=== PATIENT | female | born 1950 | race Caucasian/White ===

== ENCOUNTER 2022-01-25 18:56 | Emergency (ER) | payer MEDICARE, OTHER, SELFPAY ==
[2022-01-25] VITALS (9 sets, daily range): BP systolic 129–154; BP diastolic 63–74; PULSE 63–78; RESP 18–22; TEMP 37.1; O2SAT 97–100; BMI 22.1
--- NOTE | 2022-01-25 19:18 | DI.RAD.S_ITS ---
PROCEDURE: XR CHEST 2V INDICATIONS: Shortness of breath TECHNIQUE: 2 views of the chest were acquired. COMPARISON: None. FINDINGS: Surgical changes and devices: Left chest wall 2 lead cardiac pacing device. Median sternotomy changes. Lungs and pleura: Lungs are clear. No pleural effusions or pneumothorax. Mediastinum: Mediastinal contours are normal. Heart size is normal. Bones and chest wall: No suspicious bony abnormalities. Soft tissues appear unremarkable. IMPRESSION: No acute cardiopulmonary process demonstrated radiographically. Dictated by: Jos Villarreal M.D. on 01/25/2022 at 20:11 Approved by: Jos Villarreal M.D. on 01/25/2022 at 20:12
[2022-01-25 19:39] LABS: COVID19 -Nasal RAPID Negative (Negative)
--- NOTE | 2022-01-25 19:46 | ED.SOB ---
HPI - SOB/Dyspnea <DO Drake Robin Last Filed: 01/27/22 05:29> General Chief Complaint: Shortness of Breath/Dyspnea Stated Complaint: can't breathe, pain Time Seen by Provider: 01/25/22 19:44 History of Present Illness HPI Narrative: 71-year-old female nonsmoker with history of Brugada syndrome presents with family in the chief complaint of chest pain and shortness of breath for the past few days. A few weeks ago she had a right shoulder surgery and as part of the surgical process she had bilateral femoral lines in the event that she needed ECMO and subsequently developed pain and bleeding in her right groin which was repaired a few days ago, all this happened back in [place] where she lives and she just flew here in the past day or 2. She is not dizzy nor weak or lightheaded. She has retrosternal chest pain that is worse with deep breath and prevents her from taking a deep breath and is noticeably worse upon lying flat. She denies fever chills nor runny nose, sore throat or cough. She denies abdominal pain, nausea, vomiting or diarrhea. She does have ongoing pain in her right groin and also lower R back. She denies any dysuria, frequency or urgency. Related Data Home Medications Medication Instructions Recorded Confirmed Baby Aspirin 81 mg DAILY 01/25/22 01/25/22 clonazepam 0.5 mg tablet 0.5 mg PO BID 01/25/22 01/25/22 lamotrigine 150 mg tablet 150 mg DAILY 01/25/22 01/25/22 levothyroxine 50 mcg tablet 50 mcg DAILY 01/25/22 01/25/22 quinidine gluconate 324 mg 324 mg PO BID 01/25/22 01/25/22 tablet,extended release rosuvastatin 10 mg tablet 10 mg BEDTIME 01/25/22 01/25/22 topiramate 100 mg tablet 100 mg PO DAILY 01/25/22 01/25/22 Allergies Allergy/AdvReac Type Severity Reaction Status Date / Time amiodarone Allergy Verified 01/26/22 13:59 lidocaine Allergy Verified 01/26/22 13:59 Review of Systems <DO Drake Robin Last Filed: 01/27/22 05:29> Review of Systems Narrative: GENERAL: Denies chills, fatigue, malaise, fever, sweats. HEENT: Denies sinus pain, ear pain, sore throat, difficulty swallowing, dizziness. RESPIRATORY: See HPI CARDIOVASCULAR: See HPI GASTROINTESTINAL: Denies nausea, vomiting, abdominal pain, diarrhea, constipation, melena. : Denies dysuria, frequency, incontinence, hematuria, urinary retention. MUSCULOSKELETAL: denies weakness, joint pain, or bony pain SKIN: Denies rash, skin lesions, or other NEUROLOGIC: Denies weakness, headache, numbness, change in speech, confusion, seizures, incoordination. PSYCHIATRIC: No concerning psychosocial issues. 12 point review of systems is negative except for those stated above Patient History <Tan Andrade DO - Last Filed: 01/27/22 05:29> Social History Smoking Status: Never smoker Smoking Status: Never smoker Substance Use Type: does not use Exam <Tan Andrade DO - Last Filed: 01/27/22 05:29> Narrative Exam Narrative: GENERAL: 71] year old patient appears stated age. Well-developed patient, in mild distress. HEAD: Atraumatic. Normocephalic. EYES: Pupils equal round and reactive. Extraocular motions intact. No scleral icterus. No injection or drainage. ENT: Nose without bleeding, purulent drainage. Throat without erythema, tonsillar hypertrophy or exudate. Airway patent. NECK: Trachea midline. Non tender CARDIOVASCULAR: Regular rate and rhythm without murmurs, gallops, or rubs. RESPIRATORY: Clear to auscultation. Breath sounds equal bilaterally. No wheezes, rales, or rhonchi. GASTROINTESTINAL: Abdomen soft, non-tender, nondistended. No ecchymosis or swelling noted in R groin EXTREMITIES: No edema or joint tenderness. BACK: Nontender without deformity or crepitance. No flank tenderness. NEURO: AOx3. SKIN: No rash or erythema of visible areas Initial Vital Signs Initial Vital Signs: Vital Signs Temperature 98.7 F 01/25/22 19:10 Pulse Rate 72 01/25/22 19:10 Respiratory Rate 22 01/25/22 19:10 Blood Pressure 151/74 H 01/25/22 19:10 Pulse Oximetry 99 01/25/22 19:10 Oxygen Delivery Method 01/25/22 19:10 <Kelley Ward DO - Last Filed: 02/01/22 21:35> Initial Vital Signs Initial Vital Signs: Vital Signs Temperature 98.7 F 01/25/22 19:10 Pulse Rate 72 01/25/22 19:10 Respiratory Rate 22 01/25/22 19:10 Blood Pressure 151/74 H 01/25/22 19:10 Pulse Oximetry 99 01/25/22 19:10 Oxygen Delivery Method 01/25/22 19:10 Course <Tan Andrade DO - Last Filed: 01/27/22 05:29> Orders Ordered: Discontinued Medications Heparin Sodium (Porcine) (Heparin 5,000 Unit/Ml Vial) 4,240 unit IV NOW ONE Stop: 01/25/22 22:45 Last Admin: 01/25/22 23:37 Dose: 4,240 unit Documented By: NAHID Heparin Sodium/Dextrose (Heparin Drip) 25,000 unit in 500 mls @ 24 mls/hr IV CONT TERESA; Protocol Last Titration: 01/26/22 18:15 Dose: 0 units/hr, 0 mls/hr Documented By: Titration: 01/26/22 09:39 Dose: 900 units/hr, 18 mls/hr Documented By: Titration: 01/26/22 08:29 Dose: 0 units/hr, 0 mls/hr Documented By: Admin: 01/25/22 23:40 Dose: 1,200 units/hr, 24 mls/hr Documented By: NAHID Consultations Consultation #1: discussed with patient vascular provider (Sofie at [facility]), records sent Consultation #2: [id number] - call to [facility]. No beds. Facesheet sent. 0218 - [facility] called. Vascular paged. Dr. Douglas consulted, but she recommends against need for vascular admit and requests discussion with medicine. Not a specific need. Vital Signs Vital signs: Vital Signs - 8 hr 01/26/22 09:43 01/26/22 09:43 01/26/22 10:00 Pulse Rate 62 Respiratory Rate 26 H Blood Pressure 144/67 H 148/72 H Pulse Oximetry 99 01/26/22 10:00 01/26/22 10:30 01/26/22 11:00 Pulse Rate 57 L 57 L Respiratory Rate 19 17 Blood Pressure 123/67 Pulse Oximetry 98 97 01/26/22 11:00 01/26/22 11:30 01/26/22 12:04 Pulse Rate 56 L 64 71 Respiratory Rate 17 Blood Pressure Pulse Oximetry 96 98 01/26/22 12:30 01/26/22 13:00 01/26/22 13:30 Pulse Rate 62 Respiratory Rate 36 H Blood Pressure Pulse Oximetry 100 99 99 01/26/22 14:00 01/26/22 14:30 01/26/22 15:00 Pulse Rate 55 L 63 65 Respiratory Rate 22 19 19 Blood Pressure Pulse Oximetry 97 99 01/26/22 15:30 01/26/22 16:00 01/26/22 16:30 Pulse Rate 65 65 63 Respiratory Rate Blood Pressure Pulse Oximetry 99 100 98 <Kelley Ward, - Last Filed: 02/01/22 21:35> Orders Ordered: Discontinued Medications Heparin Sodium (Porcine) (Heparin 5,000 Unit/Ml Vial) 4,240 unit IV NOW ONE Stop: 01/25/22 22:45 Last Admin: 01/25/22 23:37 Dose: 4,240 unit Documented By: NAHID Heparin Sodium/Dextrose (Heparin Drip) 25,000 unit in 500 mls @ 24 mls/hr IV CONT TERESA; Protocol Last Titration: 01/26/22 18:15 Dose: 0 units/hr, 0 mls/hr Documented By: Titration: 01/26/22 09:39 Dose: 900 units/hr, 18 mls/hr Documented By: Titration: 01/26/22 08:29 Dose: 0 units/hr, 0 mls/hr Documented By: Admin: 01/25/22 23:40 Dose: 1,200 units/hr, 24 mls/hr Documented By: NAHID Consultations Consultation #3: Spoke with Dr. Sal at [facility]. After reviewing patient's history, he spoke with vascular and they also reviewed images with vascular surgery and Radiology and feel patient is appropriate for transfer he asked for repeat hemoglobin, plan to continue heparin drip monitor and transfer at this time. Patient has been bradycardic but not had any significant hypotensive episodes we discussed she is not been hypoxic. She has not had any acute chest pain or pressure. He asked that reports from all images be sent as well. Time: 15:30 Vital Signs Vital signs: Vital Signs - 8 hr 01/26/22 09:43 01/26/22 09:43 01/26/22 10:00 Pulse Rate 62 Respiratory Rate 26 H Blood Pressure 144/67 H 148/72 H Pulse Oximetry 99 01/26/22 10:00 01/26/22 10:30 01/26/22 11:00 Pulse Rate 57 L 57 L Respiratory Rate 19 17 Blood Pressure 123/67 Pulse Oximetry 98 97 01/26/22 11:00 01/26/22 11:30 01/26/22 12:04 Pulse Rate 56 L 64 71 Respiratory Rate 17 Blood Pressure Pulse Oximetry 96 98 01/26/22 12:30 01/26/22 13:00 01/26/22 13:30 Pulse Rate 62 Respiratory Rate 36 H Blood Pressure Pulse Oximetry 100 99 99 01/26/22 14:00 01/26/22 14:30 01/26/22 15:00 Pulse Rate 55 L 63 65 Respiratory Rate 22 19 19 Blood Pressure Pulse Oximetry 97 99 01/26/22 15:30 01/26/22 16:00 01/26/22 16:30 Pulse Rate 65 65 63 Respiratory Rate Blood Pressure Pulse Oximetry 99 100 98 MDM - SOB/Dyspnea <Tan Andrade, DO - Last Filed: 01/27/22 05:29> Lab Data Result diagrams: 01/26/22 15:26 01/26/22 11:38 Labs: Lab Results 01/25/22 01/25/22 01/25/22 Range/Units 19:07 19:40 19:40 WBC 10.1 (4.5-11.0) X10^3/uL RBC 3.35 L (4.0-5.2) X10^6/uL Hgb 10.3 L (12.0-16.0) g/dL Hct 30.5 L (36-46) % MCV 91.1 (80-100) fL MCH 30.8 (26-34) PG MCHC 33.8 (30-36) % RDW 14.6 (11.6-14.8) % Plt Count 324 (150-400) X10^3/uL Neut % (Auto) 77.5 H (50-75) % Lymph % (Auto) 11.5 L (25-40) % [place] % (Auto) 9.3 (3-14) % Eos % (Auto) 0.9 L (2-4) % Baso % (Auto) 0.8 (0-2) % Neut # (Auto) 7800 H (0096-2482) /uL Lymph # (Auto) 1200 (5214-9387) /uL [place] # (Auto) 900 (0-900) /uL Eos # (Auto) 100 (0-450) /uL Baso # (Auto) 100 (0-100) /uL APTT (26.4-36.2) SECONDS D-Dimer (<230) ng/mL Sodium 138 (137-145) mmol/L Potassium 3.2 L (3.4-5.1) mmol/L Chloride 106 (98-107) mmol/L Carbon Dioxide 22 (22-32) mmol/L BUN 14 (7-17) mg/dL Creatinine 0.72 (0.52-1.04) mg/dL Estimated GFR > 60 (>60) mL/min BUN/Creatinine Ratio 19.4 (6-22) Glucose 102 (80-110) mg/dL Lactate (0.7-2.1) mmol/L Calcium 8.6 (8.4-10.2) mg/dL Total Bilirubin 0.7 (0.2-1.3) mg/dL AST 28 (14-36) IU/L ALT 18 (<35) IU/L Alkaline Phosphatase 96 (38-126) U/L Total Creatine Kinase (30-135) U/L CK-MB (CK-2) CK-MB (CK-2) Rel Index Troponin I (0.01-0.034) ng/mL Total Protein 6.8 (6.3-8.2) g/dL Albumin 4.0 (3.5-5.0) g/dL Globulin 2.8 (1.7-4.1) g/dL Albumin/Globulin Ratio 1.4 (1.0-2.8) SARS-CoV-2 (PCR) Negative (Negative) 01/25/22 01/25/22 01/25/22 Range/Units 19:40 19:40 19:40 WBC (4.5-11.0) X10^3/uL RBC (4.0-5.2) X10^6/uL Hgb (12.0-16.0) g/dL Hct (36-46) % MCV (80-100) fL MCH (26-34) PG MCHC (30-36) % RDW (11.6-14.8) % Plt Count (150-400) X10^3/uL Neut % (Auto) (50-75) % Lymph % (Auto) (25-40) % [place] % (Auto) (3-14) % Eos % (Auto) (2-4) % Baso % (Auto) (0-2) % Neut # (Auto) (7546-8601) /uL Lymph # (Auto) (0297-9501) /uL [place] # (Auto) (0-900) /uL Eos # (Auto) (0-450) /uL Baso # (Auto) (0-100) /uL APTT 71 H (26.4-36.2) SECONDS D-Dimer 842 H (<230) ng/mL Sodium (137-145) mmol/L Potassium (3.4-5.1) mmol/L Chloride (98-107) mmol/L Carbon Dioxide (22-32) mmol/L BUN (7-17) mg/dL Creatinine (0.52-1.04) mg/dL Estimated GFR (>60) mL/min BUN/Creatinine Ratio (6-22) Glucose (80-110) mg/dL Lactate 0.6 L (0.7-2.1) mmol/L Calcium (8.4-10.2) mg/dL Total Bilirubin (0.2-1.3) mg/dL AST (14-36) IU/L ALT (<35) IU/L Alkaline Phosphatase (38-126) U/L Total Creatine Kinase (30-135) U/L CK-MB (CK-2) CK-MB (CK-2) Rel Index Troponin I (0.01-0.034) ng/mL Total Protein (6.3-8.2) g/dL Albumin (3.5-5.0) g/dL Globulin (1.7-4.1) g/dL Albumin/Globulin Ratio (1.0-2.8) SARS-CoV-2 (PCR) (Negative) 01/26/22 01/26/22 01/26/22 Range/Units 01:36 07:31 07:31 WBC (4.5-11.0) X10^3/uL RBC (4.0-5.2) X10^6/uL Hgb 9.2 L 10.8 L (12.0-16.0) g/dL Hct 27.4 L 31.4 L (36-46) % MCV (80-100) fL MCH (26-34) PG MCHC (30-36) % RDW (11.6-14.8) % Plt Count (150-400) X10^3/uL Neut % (Auto) (50-75) % Lymph % (Auto) (25-40) % [place] % (Auto) (3-14) % Eos % (Auto) (2-4) % Baso % (Auto) (0-2) % Neut # (Auto) (0018-1540) /uL Lymph # (Auto) (1399-2413) /uL [place] # (Auto) (0-900) /uL Eos # (Auto) (0-450) /uL Baso # (Auto) (0-100) /uL APTT 275 H* D (26.4-36.2) SECONDS D-Dimer (<230) ng/mL Sodium (137-145) mmol/L Potassium (3.4-5.1) mmol/L Chloride (98-107) mmol/L Carbon Dioxide (22-32) mmol/L BUN (7-17) mg/dL Creatinine (0.52-1.04) mg/dL Estimated GFR (>60) mL/min BUN/Creatinine Ratio (6-22) Glucose (80-110) mg/dL Lactate (0.7-2.1) mmol/L Calcium (8.4-10.2) mg/dL Total Bilirubin (0.2-1.3) mg/dL AST (14-36) IU/L ALT (<35) IU/L Alkaline Phosphatase (38-126) U/L Total Creatine Kinase (30-135) U/L CK-MB (CK-2) CK-MB (CK-2) Rel Index Troponin I (0.01-0.034) ng/mL Total Protein (6.3-8.2) g/dL Albumin (3.5-5.0) g/dL Globulin (1.7-4.1) g/dL Albumin/Globulin Ratio (1.0-2.8) SARS-CoV-2 (PCR) (Negative) 01/26/22 01/26/22 01/26/22 Range/Units 09:12 11:38 11:38 WBC (4.5-11.0) X10^3/uL RBC (4.0-5.2) X10^6/uL Hgb (12.0-16.0) g/dL Hct (36-46) % MCV (80-100) fL MCH (26-34) PG MCHC (30-36) % RDW (11.6-14.8) % Plt Count (150-400) X10^3/uL Neut % (Auto) (50-75) % Lymph % (Auto) (25-40) % [place] % (Auto) (3-14) % Eos % (Auto) (2-4) % Baso % (Auto) (0-2) % Neut # (Auto) (8057-2568) /uL Lymph # (Auto) (8913-1087) /uL [place] # (Auto) (0-900) /uL Eos # (Auto) (0-450) /uL Baso # (Auto) (0-100) /uL APTT 63 H D (26.4-36.2) SECONDS D-Dimer (<230) ng/mL Sodium 137 (137-145) mmol/L Potassium 3.3 L (3.4-5.1) mmol/L Chloride 105 (98-107) mmol/L Carbon Dioxide 23 (22-32) mmol/L BUN 12 (7-17) mg/dL Creatinine 0.60 (0.52-1.04) mg/dL Estimated GFR > 60 (>60) mL/min BUN/Creatinine Ratio 20.0 (6-22) Glucose 91 (80-110) mg/dL Lactate (0.7-2.1) mmol/L Calcium 8.2 L (8.4-10.2) mg/dL Total Bilirubin (0.2-1.3) mg/dL AST (14-36) IU/L ALT (<35) IU/L Alkaline Phosphatase (38-126) U/L Total Creatine Kinase 36 (30-135) U/L CK-MB (CK-2) TNP CK-MB (CK-2) Rel Index TNP Troponin I < 0.012 (0.01-0.034) ng/mL Total Protein (6.3-8.2) g/dL Albumin (3.5-5.0) g/dL Globulin (1.7-4.1) g/dL Albumin/Globulin Ratio (1.0-2.8) SARS-CoV-2 (PCR) (Negative) 01/26/22 Range/Units 15:26 WBC (4.5-11.0) X10^3/uL RBC (4.0-5.2) X10^6/uL Hgb 10.8 L (12.0-16.0) g/dL Hct 31.5 L (36-46) % MCV (80-100) fL MCH (26-34) PG MCHC (30-36) % RDW (11.6-14.8) % Plt Count (150-400) X10^3/uL Neut % (Auto) (50-75) % Lymph % (Auto) (25-40) % [place] % (Auto) (3-14) % Eos % (Auto) (2-4) % Baso % (Auto) (0-2) % Neut # (Auto) (0392-0263) /uL Lymph # (Auto) (9853-7403) /uL [place] # (Auto) (0-900) /uL Eos # (Auto) (0-450) /uL Baso # (Auto) (0-100) /uL APTT (26.4-36.2) SECONDS D-Dimer (<230) ng/mL Sodium (137-145) mmol/L Potassium (3.4-5.1) mmol/L Chloride (98-107) mmol/L Carbon Dioxide (22-32) mmol/L BUN (7-17) mg/dL Creatinine (0.52-1.04) mg/dL Estimated GFR (>60) mL/min BUN/Creatinine Ratio (6-22) Glucose (80-110) mg/dL Lactate (0.7-2.1) mmol/L Calcium (8.4-10.2) mg/dL Total Bilirubin (0.2-1.3) mg/dL AST (14-36) IU/L ALT (<35) IU/L Alkaline Phosphatase (38-126) U/L Total Creatine Kinase (30-135) U/L CK-MB (CK-2) CK-MB (CK-2) Rel Index Troponin I (0.01-0.034) ng/mL Total Protein (6.3-8.2) g/dL Albumin (3.5-5.0) g/dL Globulin (1.7-4.1) g/dL Albumin/Globulin Ratio (1.0-2.8) SARS-CoV-2 (PCR) (Negative) <Kelley Katie Ed, DO - Last Filed: 02/01/22 21:35> Lab Data Labs: Lab Results 01/25/22 01/25/22 01/25/22 Range/Units 19:07 19:40 19:40 WBC 10.1 (4.5-11.0) X10^3/uL RBC 3.35 L (4.0-5.2) X10^6/uL Hgb 10.3 L (12.0-16.0) g/dL Hct 30.5 L (36-46) % MCV 91.1 (80-100) fL MCH 30.8 (26-34) PG MCHC 33.8 (30-36) % RDW 14.6 (11.6-14.8) % Plt Count 324 (150-400) X10^3/uL Neut % (Auto) 77.5 H (50-75) % Lymph % (Auto) 11.5 L (25-40) % [place] % (Auto) 9.3 (3-14) % Eos % (Auto) 0.9 L (2-4) % Baso % (Auto) 0.8 (0-2) % Neut # (Auto) 7800 H (0249-9229) /uL Lymph # (Auto) 1200 (2318-6998) /uL [place] # (Auto) 900 (0-900) /uL Eos # (Auto) 100 (0-450) /uL Baso # (Auto) 100 (0-100) /uL APTT (26.4-36.2) SECONDS D-Dimer (<230) ng/mL Sodium 138 (137-145) mmol/L Potassium 3.2 L (3.4-5.1) mmol/L Chloride 106 (98-107) mmol/L Carbon Dioxide 22 (22-32) mmol/L BUN 14 (7-17) mg/dL Creatinine 0.72 (0.52-1.04) mg/dL Estimated GFR > 60 (>60) mL/min BUN/Creatinine Ratio 19.4 (6-22) Glucose 102 (80-110) mg/dL Lactate (0.7-2.1) mmol/L Calcium 8.6 (8.4-10.2) mg/dL Total Bilirubin 0.7 (0.2-1.3) mg/dL AST 28 (14-36) IU/L ALT 18 (<35) IU/L Alkaline Phosphatase 96 (38-126) U/L Total Creatine Kinase (30-135) U/L CK-MB (CK-2) CK-MB (CK-2) Rel Index Troponin I (0.01-0.034) ng/mL Total Protein 6.8 (6.3-8.2) g/dL Albumin 4.0 (3.5-5.0) g/dL Globulin 2.8 (1.7-4.1) g/dL Albumin/Globulin Ratio 1.4 (1.0-2.8) SARS-CoV-2 (PCR) Negative (Negative) 01/25/22 01/25/22 01/25/22 Range/Units 19:40 19:40 19:40 WBC (4.5-11.0) X10^3/uL RBC (4.0-5.2) X10^6/uL Hgb (12.0-16.0) g/dL Hct (36-46) % MCV (80-100) fL MCH (26-34) PG MCHC (30-36) % RDW (11.6-14.8) % Plt Count (150-400) X10^3/uL Neut % (Auto) (50-75) % Lymph % (Auto) (25-40) % [place] % (Auto) (3-14) % Eos % (Auto) (2-4) % Baso % (Auto) (0-2) % Neut # (Auto) (5531-7597) /uL Lymph # (Auto) (5983-3407) /uL [place] # (Auto) (0-900) /uL Eos # (Auto) (0-450) /uL Baso # (Auto) (0-100) /uL APTT 71 H (26.4-36.2) SECONDS D-Dimer 842 H (<230) ng/mL Sodium (137-145) mmol/L Potassium (3.4-5.1) mmol/L Chloride (98-107) mmol/L Carbon Dioxide (22-32) mmol/L BUN (7-17) mg/dL Creatinine (0.52-1.04) mg/dL Estimated GFR (>60) mL/min BUN/Creatinine Ratio (6-22) Glucose (80-110) mg/dL Lactate 0.6 L (0.7-2.1) mmol/L Calcium (8.4-10.2) mg/dL Total Bilirubin (0.2-1.3) mg/dL AST (14-36) IU/L ALT (<35) IU/L Alkaline Phosphatase (38-126) U/L Total Creatine Kinase (30-135) U/L CK-MB (CK-2) CK-MB (CK-2) Rel Index Troponin I (0.01-0.034) ng/mL Total Protein (6.3-8.2) g/dL Albumin (3.5-5.0) g/dL Globulin (1.7-4.1) g/dL Albumin/Globulin Ratio (1.0-2.8) SARS-CoV-2 (PCR) (Negative) 01/26/22 01/26/22 01/26/22 Range/Units 01:36 07:31 07:31 WBC (4.5-11.0) X10^3/uL RBC (4.0-5.2) X10^6/uL Hgb 9.2 L 10.8 L (12.0-16.0) g/dL Hct 27.4 L 31.4 L (36-46) % MCV (80-100) fL MCH (26-34) PG MCHC (30-36) % RDW (11.6-14.8) % Plt Count (150-400) X10^3/uL Neut % (Auto) (50-75) % Lymph % (Auto) (25-40) % [place] % (Auto) (3-14) % Eos % (Auto) (2-4) % Baso % (Auto) (0-2) % Neut # (Auto) (6324-0697) /uL Lymph # (Auto) (6989-8911) /uL [place] # (Auto) (0-900) /uL Eos # (Auto) (0-450) /uL Baso # (Auto) (0-100) /uL APTT 275 H* D (26.4-36.2) SECONDS D-Dimer (<230) ng/mL Sodium (137-145) mmol/L Potassium (3.4-5.1) mmol/L Chloride (98-107) mmol/L Carbon Dioxide (22-32) mmol/L BUN (7-17) mg/dL Creatinine (0.52-1.04) mg/dL Estimated GFR (>60) mL/min BUN/Creatinine Ratio (6-22) Glucose (80-110) mg/dL Lactate (0.7-2.1) mmol/L Calcium (8.4-10.2) mg/dL Total Bilirubin (0.2-1.3) mg/dL AST (14-36) IU/L ALT (<35) IU/L Alkaline Phosphatase (38-126) U/L Total Creatine Kinase (30-135) U/L CK-MB (CK-2) CK-MB (CK-2) Rel Index Troponin I (0.01-0.034) ng/mL Total Protein (6.3-8.2) g/dL Albumin (3.5-5.0) g/dL Globulin (1.7-4.1) g/dL Albumin/Globulin Ratio (1.0-2.8) SARS-CoV-2 (PCR) (Negative) 01/26/22 01/26/22 01/26/22 Range/Units 09:12 11:38 11:38 WBC (4.5-11.0) X10^3/uL RBC (4.0-5.2) X10^6/uL Hgb (12.0-16.0) g/dL Hct (36-46) % MCV (80-100) fL MCH (26-34) PG MCHC (30-36) % RDW (11.6-14.8) % Plt Count (150-400) X10^3/uL Neut % (Auto) (50-75) % Lymph % (Auto) (25-40) % [place] % (Auto) (3-14) % Eos % (Auto) (2-4) % Baso % (Auto) (0-2) % Neut # (Auto) (3636-1842) /uL Lymph # (Auto) (9845-8894) /uL [place] # (Auto) (0-900) /uL Eos # (Auto) (0-450) /uL Baso # (Auto) (0-100) /uL APTT 63 H D (26.4-36.2) SECONDS D-Dimer (<230) ng/mL Sodium 137 (137-145) mmol/L Potassium 3.3 L (3.4-5.1) mmol/L Chloride 105 (98-107) mmol/L Carbon Dioxide 23 (22-32) mmol/L BUN 12 (7-17) mg/dL Creatinine 0.60 (0.52-1.04) mg/dL Estimated GFR > 60 (>60) mL/min BUN/Creatinine Ratio 20.0 (6-22) Glucose 91 (80-110) mg/dL Lactate (0.7-2.1) mmol/L Calcium 8.2 L (8.4-10.2) mg/dL Total Bilirubin (0.2-1.3) mg/dL AST (14-36) IU/L ALT (<35) IU/L Alkaline Phosphatase (38-126) U/L Total Creatine Kinase 36 (30-135) U/L CK-MB (CK-2) TNP CK-MB (CK-2) Rel Index TNP Troponin I < 0.012 (0.01-0.034) ng/mL Total Protein (6.3-8.2) g/dL Albumin (3.5-5.0) g/dL Globulin (1.7-4.1) g/dL Albumin/Globulin Ratio (1.0-2.8) SARS-CoV-2 (PCR) (Negative) 01/26/22 Range/Units 15:26 WBC (4.5-11.0) X10^3/uL RBC (4.0-5.2) X10^6/uL Hgb 10.8 L (12.0-16.0) g/dL Hct 31.5 L (36-46) % MCV (80-100) fL MCH (26-34) PG MCHC (30-36) % RDW (11.6-14.8) % Plt Count (150-400) X10^3/uL Neut % (Auto) (50-75) % Lymph % (Auto) (25-40) % [place] % (Auto) (3-14) % Eos % (Auto) (2-4) % Baso % (Auto) (0-2) % Neut # (Auto) (9030-4359) /uL Lymph # (Auto) (2110-5275) /uL [place] # (Auto) (0-900) /uL Eos # (Auto) (0-450) /uL Baso # (Auto) (0-100) /uL APTT (26.4-36.2) SECONDS D-Dimer (<230) ng/mL Sodium (137-145) mmol/L Potassium (3.4-5.1) mmol/L Chloride (98-107) mmol/L Carbon Dioxide (22-32) mmol/L BUN (7-17) mg/dL Creatinine (0.52-1.04) mg/dL Estimated GFR (>60) mL/min BUN/Creatinine Ratio (6-22) Glucose (80-110) mg/dL Lactate (0.7-2.1) mmol/L Calcium (8.4-10.2) mg/dL Total Bilirubin (0.2-1.3) mg/dL AST (14-36) IU/L ALT (<35) IU/L Alkaline Phosphatase (38-126) U/L Total Creatine Kinase (30-135) U/L CK-MB (CK-2) CK-MB (CK-2) Rel Index Troponin I (0.01-0.034) ng/mL Total Protein (6.3-8.2) g/dL Albumin (3.5-5.0) g/dL Globulin (1.7-4.1) g/dL Albumin/Globulin Ratio (1.0-2.8) SARS-CoV-2 (PCR) (Negative) Imaging Data CT chest/abd/pelvis: Radiologist's Impression: [address] [address] [address] Scan Report Signed Patient: Daria Benedict MR#: [id number] : 1950 Acct:[id number] Age/Sex: 71 / F Date of Service: 01/25/22 Loc: ED Accession Number: [id number] ?? Procedure: CT angio chest abdomen pelvis Ordering Provider: Tan Andrade D.O. PROCEDURE:? CT ANGIO CHEST ABDOMEN PELVIS ? INDICATIONS:? chest pain, SOB, travel, surgery ? TECHNIQUE:? Precontrast 5 mm thick sections acquired from the lung apices to the iliac crests.? After the administration of intravenous contrast, 2.5 mm thick sections again acquired from the lung apices to the iliac crests.? Maximum intensity projection (MIP) oblique sagittal and coronal reformats were then acquired.? For radiation dose reduction, the following was used:? automated exposure control.? ? COMPARISON:? None. ? FINDINGS:? ? Normal caliber thoracic aorta without acute finding.? Abdominal aorta and major visceral branches of the abdominal aorta demonstrate no acute finding.? Mild atherosclerotic plaque and calcification in the abdominal aorta and iliac arteries. ? Multiple right lower lobe pulmonary artery filling defects consistent with acute pulmonary emboli which are fully occlusive.? ? No acute airspace opacity.? Mild emphysematous changes.? In the basilar right lower lobe there is a small focus of either atelectasis or hemorrhagic consolidation related to the embolism.? No pleural effusion or pneumothorax.? No threshold enlarged thoracic lymph node by CT size criteria. ? No acute finding in the partially visualized upper abdomen.? There are several pancreatic low-density lesions which are thought to represent IP M ends, largest measuring 1.5 cm in the tail. ? There is a hematoma in the right rectus abdominus sheath measuring 5 cm by 1.6 cm maximum axial dimension.? No evidence of active extravasation into this hematoma.? There is fat stranding in the right lower quadrant abdomen and in the right femoral sheath adjacent to the femoral and iliac veins.? There is an additional suspected organized hematoma anterior and to the right of the urinary bladder on series 4, image 253 measuring 6 x 2 cm.? No free fluid or free air.? No acute enteric abnormality. ? Impression: ? Multiple acute fully occlusive right lower lobe pulmonary artery emboli with small focus of atelectasis or hemorrhagic consolidation in the right lower lobe. ? No acute aortic abnormality. ? Hematoma in the right rectus abdominus sheath and 2 retroperitoneal hematomas in the lower right pelvis.? Fat stranding surrounding the hematomas extending into the right femoral sheath.? Correlate with recent procedural/operative history.? No active extravasation into the hematoma is identified. ? 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 Correlate with prior imaging to document stability. ? Dictated by: Jos Villarreal M.D. on 01/25/2022 at 20:55 ? ? Approved by: Jos Villarreal M.D. on 01/25/2022 at 21:01?? Chest x-ray: Radiologist's Impression: [address] [address] XRay Report Signed Patient: Daria Benedict MR#: [id number] : 1950 Acct:[id number] Age/Sex: 71 / F Date of Service: 01/25/22 Loc: ED Accession Number: [id number] ?? Procedure: XR chest 2V Ordering Provider: Tan Andrade D.O. PROCEDURE:? XR CHEST 2V ? INDICATIONS:? Shortness of breath ? TECHNIQUE:? 2 views of the chest were acquired.? ? COMPARISON:? None. ? FINDINGS:? ? Surgical changes and devices:? Left chest wall 2 lead cardiac pacing device.? Median sternotomy changes. ? Lungs and pleura:? Lungs are clear.? No pleural effusions or pneumothorax.? ? Mediastinum:? Mediastinal contours are normal.? Heart size is normal.? ? Bones and chest wall:? No suspicious bony abnormalities.? Soft tissues appear unremarkable.? ? IMPRESSION:? No acute cardiopulmonary process demonstrated radiographically. ? ? Dictated by: Jos Villarreal M.D. on 01/25/2022 at 20:11 ? ? Approved by: Jos Villarreal M.D. on 01/25/2022 at 20:12?? US - DVT: Radiologist's Impression: [address] [id number] ReportSigned Patient: Daria Benedict JMR#: [id number]: [id number]:[id number]/Sex: 71 / FDate of Service: 01/26/22Loc: EDAccession Number: [id number]? ? Procedure: US periph venous low extrem bi Ordering Provider: Kelley Ward D.O. PROCEDURE:? US PERIPH VENOUS LOW EXTREM BI ? INDICATIONS:? PE ? TECHNIQUE:? Real-time imaging, as well as color and pulse Doppler interrogation, were performed of the deep veins of both legs from the inguinal ligament to the popliteal fossa.? ? COMPARISON:? [facility], CT, CT ANGIO CHEST ABDOMEN PELVIS, 01/25/2022, 20:15. ? FINDINGS:? ? Right: The common femoral, femoral and popliteal veins are normally compressible, and free of intraluminal thrombus.? Color and pulse Doppler demonstrate normal phasic intravascular flow.? There is normal augmentation response to distal compression maneuver.? ? Left: The common femoral, femoral and popliteal veins are normally compressible, and free of intraluminal thrombus.? Color and pulse Doppler demonstrate normal phasic intravascular flow.? There is normal augmentation response to distal compression maneuver.? ? ? IMPRESSION:? ? Negative for deep venous thrombosis. ? ? Dictated by: Roger Lovell M.D. on 01/26/2022 at 15:26? ?? Approved by: Roger Lovell M.D. on 01/26/2022 at 15:26?? ECG Data Attestation: I personally reviewed and interpreted this ECG as follows: Interpretation: Sinus bradycardia patient does have changes in V1 V2 with inverted T-wave and depressed at V2 that likely consistent with her Brugada history. No other ST changes are appreciated. No priors for comparison. Rate of 58 OR 194 QRS 86 and QTC of 457. MDM Narrative Medical decision making narrative: 01/26/22 [facility] 0849: Patient received in sign-out from Dr. Andrade. Patient seen independently evaluated by myself. Her chest pain has resolved she still has some right abdominal pain. Patient has a history of Brugada syndrome on quinidine had right shoulder surgery January 11 and had bilateral femoral lines placed in the event for potential ECMO based on her past medical history. They were removed on January 13 she developed pseudoaneurysm was seen in the ER no obvious bleed is reported but I do not have her actual records. Patient was found to have a pseudoaneurysm and saw her vascular surgeon as an outpatient following Saturday and had injection to treat this. This occurred in [place] at [facility] in [place], [place] and then she flew here locally 2 days ago. Her vascular surgeon is Dr. Carrizales in [place]. Patient came in with complaint of retrosternal chest pain and shortness of breath was found to have occlusive PEs but with no signs of heart strain or interventional criteria but was also found to have rectus sheath and retroperitoneal hematomas in the lower right pelvis likely related to her femoral sheaths. Patient's hemoglobin dropped 1 g overnight but is likely lab variant as repeat is same as the initial while on heparin. There was concern for additional bleeding and vascular and Cardiology was consulted, recommend treatment for pulmonary emboli but monitoring to evaluate for any bleeding. Hospitalist here was concerned as if she were to worsen acutely we do not have the appropriate services for this patient. Patient had multiple facilities called but secondary to regional bed shortage has not been accepted. She is on the [facility] hotline, hemoglobin continued to be monitored along with PTT and BMP to be rechecked this morning while searching for a bed. Patient seen multiple times throughout her stay today. She continues to be asymptomatic. Hemoglobin was stable overnight into this morning. Potassium was slightly low BNP was repeated and does not show any major changes. Patient has been bradycardic but not hypotensive or hypoxic episodes. Her chest pain has resolved. Patient continues to be on heparin drip. She took her home medications except for her daily aspirin including her quinidine, levothyroxine, lamotrigine and Topamax. After discussion we were able to find a bed at [facility] and Dr. Sal kindly accepts for admission. Patient stable for transfer. All questions answered. Discharge Plan Departure Patient Disposition: [facility] Clinical Impression: Pulmonary embolism on right, Intra-abdominal hematoma, Brugada syndrome Prescriptions: No Action lamotrigine 150 mg tablet 150 mg DAILY Label Comments: Take 1 tab by mouth every morning and 1/2 tab every evening quinidine gluconate 324 mg tablet extended release 324 mg PO BID Label Comments: TAKE ONE TABLET BY MOUTH EVERY TWELVE HOURS Rx Instructions: takes every 12 hours levothyroxine 50 mcg tablet 50 mcg DAILY Label Comments: Take 1 tablet by mouth daily for hypothyroidism. topiramate 100 mg Tablet 100 mg PO DAILY rosuvastatin 10 mg tablet 10 mg BEDTIME Label Comments: Take 1 tablet by mouth daily for mixed hyperlipidemia. Baby Aspirin 81 mg 81 mg DAILY clonazepam 0.5 mg Tablet 0.5 mg PO BID
[2022-01-25 19:48] LABS: Add Manual Diff / Slide Review NO; Basophils Absolute Auto 100 /uL (0-100); Basophils Percent Auto 0.8 % (0-2); Eosinophils Absolute Auto 100 /uL (0-450); Eosinophils Percent Auto 0.9 % (2-4); Hematocrit 30.5 % (36-46); Hemoglobin 10.3 g/dL (12.0-16.0); Lymphocytes Absolute Auto 1200 /uL (1100-4500); Lymphocytes Percent Auto 11.5 % (25-40); Mean Corpuscular HGB Conc 33.8 % (30-36); Mean Corpuscular Hemoglobin 30.8 PG (26-34); Mean Corpuscular Volume 91.1 fL (80-100); Monocytes Absolute Auto 900 /uL (0-900); Monocytes Percent Auto 9.3 % (3-14); Neutrophils Absolute Auto 7800 /uL (1500-7000); Neutrophils Percent Auto 77.5 % (50-75); Platelet Count 324 X10^3/uL (150-400); Red Blood Cell Count 3.35 X10^6/uL (4.0-5.2); Red Cell Distribution Width 14.6 % (11.6-14.8); White Blood Cell Count 10.1 X10^3/uL (4.5-11.0)
[2022-01-25 19:58] LABS: D Dimer 842 ng/mL (<230)
[2022-01-25 20:00] LABS: Alanine Aminotransferase 18 IU/L (<35); Albumin Globulin Ratio 1.4 (1.0-2.8); Alkaline Phosphatase 96 U/L (38-126); Aspartate Aminotransferase 28 IU/L (14-36); BUN Creatinine Ratio 19.4 (6-22); Bilirubin Total 0.7 mg/dL (0.2-1.3); Blood Urea Nitrogen 14 mg/dL (7-17); Calcium 8.6 mg/dL (8.4-10.2); Carbon Dioxide 22 mmol/L (22-32); Chloride 106 mmol/L (98-107); Estimated Glomerular Filt Rate > 60 mL/min (>60); Globulin 2.8 g/dL (1.7-4.1); Glucose 102 mg/dL (80-110); HEMOLYSIS < 15 (0-50); Potassium 3.2 mmol/L (3.4-5.1); Sodium 138 mmol/L (137-145); Total Protein 6.8 g/dL (6.3-8.2)
[2022-01-25 20:01] LABS: Lactate (Lactic Acid) 0.6 mmol/L (0.7-2.1)
--- NOTE | 2022-01-25 20:09 | DI.CT.S_ITS ---
PROCEDURE: CT ANGIO CHEST ABDOMEN PELVIS INDICATIONS: chest pain, SOB, travel, surgery TECHNIQUE: Precontrast 5 mm thick sections acquired from the lung apices to the iliac crests. After the administration of intravenous contrast, 2.5 mm thick sections again acquired from the lung apices to the iliac crests. Maximum intensity projection (MIP) oblique sagittal and coronal reformats were then acquired. For radiation dose reduction, the following was used: automated exposure control. COMPARISON: None. FINDINGS: Normal caliber thoracic aorta without acute finding. Abdominal aorta and major visceral branches of the abdominal aorta demonstrate no acute finding. Mild atherosclerotic plaque and calcification in the abdominal aorta and iliac arteries. Multiple right lower lobe pulmonary artery filling defects consistent with acute pulmonary emboli which are fully occlusive. No acute airspace opacity. Mild emphysematous changes. In the basilar right lower lobe there is a small focus of either atelectasis or hemorrhagic consolidation related to the embolism. No pleural effusion or pneumothorax. No threshold enlarged thoracic lymph node by CT size criteria. No acute finding in the partially visualized upper abdomen. There are several pancreatic low-density lesions which are thought to represent IP M ends, largest measuring 1.5 cm in the tail. There is a hematoma in the right rectus abdominus sheath measuring 5 cm by 1.6 cm maximum axial dimension. No evidence of active extravasation into this hematoma. There is fat stranding in the right lower quadrant abdomen and in the right femoral sheath adjacent to the femoral and iliac veins. There is an additional suspected organized hematoma anterior and to the right of the urinary bladder on series 4, image 253 measuring 6 x 2 cm. No free fluid or free air. No acute enteric abnormality. Impression: Multiple acute fully occlusive right lower lobe pulmonary artery emboli with small focus of atelectasis or hemorrhagic consolidation in the right lower lobe. No acute aortic abnormality. Hematoma in the right rectus abdominus sheath and 2 retroperitoneal hematomas in the lower right pelvis. Fat stranding surrounding the hematomas extending into the right femoral sheath. Correlate with recent procedural/operative history. No active extravasation into the hematoma is identified. 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 Correlate with prior imaging to document stability. Dictated by: Jos Villarreal M.D. on 01/25/2022 at 20:55 Approved by: Jos Villarreal M.D. on 01/25/2022 at 21:01
--- NOTE | 2022-01-25 20:24 | PC.NURSE ---
Pt with hx of surgery on 01/11 and repair of leaky femeral artery 01/22, reports having bilateral lung pain with breathing on 01/23. Traveled today by plane fron [place]. Feels that she can not breathe, o2 99 % RA at this time. Pain increases when at night.
[2022-01-25] MEDS: HEPARIN 5,000 UNIT/ML VIAL 4240 UNIT IV (23:37)
[2022-01-25] MEDS: HEPARIN DRIP 25,000 UNIT/500 ML IV.SOLN 24 UNIT IV (23:40)
[2022-01-25 23:59] LABS: PTT Partial Thromboplastin Tim 71 SECONDS (26.4-36.2)
[2022-01-26] VITALS (38 sets, daily range): BP systolic 123–148; BP diastolic 65–72; PULSE 55–73; RESP 16–39; O2SAT 96–100
[2022-01-26 01:47] LABS: Hematocrit 27.4 % (36-46); Hemoglobin 9.2 g/dL (12.0-16.0)
[2022-01-26 07:39] LABS: Hematocrit 31.4 % (36-46); Hemoglobin 10.8 g/dL (12.0-16.0)
[2022-01-26 08:13] LABS: PTT Partial Thromboplastin Tim 275 SECONDS (26.4-36.2)
--- NOTE | 2022-01-26 09:15 | PC.NURSE ---
Patient took own home meds, ok per Dr. springer. Quinidine Glucconate 324mg Levothyroxine 50mcg Lamictal 150mg Clonazepam 0.5mg Topiramate 100mg
[2022-01-26 09:46] LABS: Creatine Kinase 36 U/L (30-135)
[2022-01-26 10:00] LABS: Troponin I < 0.012 ng/mL (0.01-0.034)
[2022-01-26 11:59] LABS: PTT Partial Thromboplastin Tim 63 SECONDS (26.4-36.2)
[2022-01-26 12:45] LABS: Blood Urea Nitrogen 12 mg/dL (7-17); Calcium 8.2 mg/dL (8.4-10.2); Carbon Dioxide 23 mmol/L (22-32); Chloride 105 mmol/L (98-107); Estimated Glomerular Filt Rate > 60 mL/min (>60); Glucose 91 mg/dL (80-110); HEMOLYSIS 25 (0-50); Potassium 3.3 mmol/L (3.4-5.1); Sodium 137 mmol/L (137-145)
--- NOTE | 2022-01-26 15:25 | DI.US.S_ITS ---
PROCEDURE: US PERIPH VENOUS LOW EXTREM BI INDICATIONS: PE TECHNIQUE: Real-time imaging, as well as color and pulse Doppler interrogation, were performed of the deep veins of both legs from the inguinal ligament to the popliteal fossa. COMPARISON: [facility], CT, CT ANGIO CHEST ABDOMEN PELVIS, 01/25/2022, 20:15. FINDINGS: Right: The common femoral, femoral and popliteal veins are normally compressible, and free of intraluminal thrombus. Color and pulse Doppler demonstrate normal phasic intravascular flow. There is normal augmentation response to distal compression maneuver. Left: The common femoral, femoral and popliteal veins are normally compressible, and free of intraluminal thrombus. Color and pulse Doppler demonstrate normal phasic intravascular flow. There is normal augmentation response to distal compression maneuver. IMPRESSION: Negative for deep venous thrombosis. Dictated by: Roger Lovell M.D. on 01/26/2022 at 15:26 Approved by: Roger Lovell M.D. on 01/26/2022 at 15:26
[2022-01-26 17:45] LABS: Hematocrit 31.5 % (36-46); Hemoglobin 10.8 g/dL (12.0-16.0)
--- NOTE | 2022-01-26 18:30 | PC.NURSE ---
transferred to [place] on Heparin gtt at 18ml/hr., 900 units hour
== END 2022-01-26 18:16 | disposition short-term general hospital (02) ==
PROVIDERS: Emergency Medicine; Emergency Provider Emergency Medicine
DX: I26.99 Other pulmonary embolism without acute cor pulmonale (principal); I49.8 Other specified cardiac arrhythmias; R06.02 Shortness of breath; S36.92XA Contusion of unspecified intra-abdominal organ, initial encounter; Z20.822 Contact with and (suspected) exposure to COVID-19
CPT/HCPCS: 36415; 71046; 71275; 74174; 80048; 80053; 82550; 83605; 84484; 85014; 85018; 85025; 85379; 85730; 87635; 93005; 93970; 96365; 96366; 96375; 99285; C9803; J1644

== ENCOUNTER → 2022-06-27 12:44 | Outpatient (CLI) | payer MEDICARE, OTHER, SELFPAY ==
[2022-06-27 13:39] LABS: Add Manual Diff / Slide Review NO; Basophils Absolute Auto 100 /uL (0-100); Basophils Percent Auto 1.3 % (0-2); Eosinophils Absolute Auto 300 /uL (0-450); Eosinophils Percent Auto 5.1 % (2-4); Hematocrit 39.6 % (36-46); Hemoglobin 13.2 g/dL (12.0-16.0); Lymphocytes Absolute Auto 1400 /uL (1100-4500); Lymphocytes Percent Auto 23.9 % (25-40); Mean Corpuscular HGB Conc 33.4 % (30-36); Mean Corpuscular Hemoglobin 30.6 PG (26-34); Mean Corpuscular Volume 91.4 fL (80-100); Monocytes Absolute Auto 600 /uL (0-900); Monocytes Percent Auto 10.5 % (3-14); Neutrophils Absolute Auto 3400 /uL (1500-7000); Neutrophils Percent Auto 59.2 % (50-75); Platelet Count 223 X10^3/uL (150-400); Red Blood Cell Count 4.33 X10^6/uL (4.0-5.2); Red Cell Distribution Width 15.1 % (11.6-14.8); White Blood Cell Count 5.7 X10^3/uL (4.5-11.0)
[2022-06-27 13:46] LABS: INR 1.5 (0.9-1.3)
[2022-06-27 14:14] LABS: Alanine Aminotransferase 24 IU/L (<35); Albumin 4.3 g/dL (3.5-5.0); Albumin Globulin Ratio 1.7 (1.0-2.8); Alkaline Phosphatase 71 U/L (38-126); Aspartate Aminotransferase 27 IU/L (14-36); BUN Creatinine Ratio 21.4 (6-22); Bilirubin Total 0.4 mg/dL (0.2-1.3); Blood Urea Nitrogen 18 mg/dL (7-17); Calcium 9.3 mg/dL (8.4-10.2); Carbon Dioxide 27 mmol/L (22-32); Chloride 103 mmol/L (98-107); Cholesterol 160 mg/dL (140-199); Estimated Glomerular Filt Rate > 60 mL/min (>60); Globulin 2.5 g/dL (1.7-4.1); Glucose 78 mg/dL (80-110); HDL Cholesterol 56 mg/dL (40-60); HEMOLYSIS < 15 (0-50); LDL Cholesterol Calculated 67 mg/dL (<100); Potassium 3.7 mmol/L (3.4-5.1); Sodium 141 mmol/L (137-145); Total Protein 6.8 g/dL (6.3-8.2); Triglycerides 185 mg/dL (35-150)
[2022-06-27 14:33] LABS: TSH w/ Reflex to FT4 1.42 uIU/mL (0.47-4.68)
[2022-06-27 16:15] LABS: Vitamin D 25 Hydroxy (D3) 43.6 ng/mL (30.0-100.0)
== END ==
PROVIDERS: Family Medicine; PCP Family Medicine; Referring Provider Family Medicine; Visit Provider Family Medicine
DX: E03.9 Hypothyroidism, unspecified (principal); I26.99 Other pulmonary embolism without acute cor pulmonale; M81.0 Age-related osteoporosis without current pathological fracture; E78.49 Other hyperlipidemia; I49.8 Other specified cardiac arrhythmias
CPT/HCPCS: 36415; 80053; 80061; 82306; 84443; 85025; 85610

== ENCOUNTER → 2022-12-14 10:06 | Outpatient (CLI) | payer MEDICARE, OTHER, SELFPAY ==
--- NOTE | 2022-12-14 | DI.CT.S_ITS ---
PROCEDURE: CT LUMBAR SPINE WO CON INDICATIONS: LOW BACK PAIN TECHNIQUE: Noncontrast 3 mm thick sections acquired from the T12 level to the sacrum. Sagittal and coronal reformats were constructed. For radiation dose reduction, the following was used: automated exposure control. COMPARISON: [facility], CT, CT ANGIO CHEST ABDOMEN PELVIS, 01/25/2022, 20:15. FINDINGS: Image quality: Excellent. Bones: There is 5 millimeter anterolisthesis of L3 on L4. 2 millimeter retrolisthesis of L1 on L2 is also seen. No acute vertebral body compression fractures. No suspicious lytic or blastic bony lesions. No pars defects. T12-L1: Unremarkable. L1-L2: Mild degenerative endplate changes are seen. Central to left-sided disc bulge is seen, causing [id number] central canal stenosis. No significant neural foraminal narrowing. L2-L3: Degenerative endplate changes are seen. Broad-based disc bulge and bilateral facet arthrosis is seen causing mild central canal stenosis and moderate left-sided neural foraminal narrowing. L3-L4: Degenerative endplate changes are seen. Broad-based disc bulge and bilateral facet arthrosis is noted causing moderate to severe central canal stenosis, severe left-sided neural foraminal narrowing and moderate right-sided neural foraminal narrowing. L4-L5: Loss of disc height and degenerative endplate changes are seen. Broad-based disc bulge and bilateral facet arthrosis is seen causing mild to moderate central canal stenosis and moderate bilateral neural foraminal narrowing. L5-S1: Degenerative endplate changes are seen. Mild diffuse disc bulge and bilateral facet arthrosis is seen, no significant central canal stenosis or neural foraminal narrowing. Soft tissues: No retroperitoneal masses or hematomas. Visualized aorta is normal in caliber. IMPRESSION: 1. Degenerative disc disease throughout lumbar spine causing various degrees of central canal stenosis and bilateral neural foraminal narrowing more notably at L3-4 and L4-5 levels as described above. 2. Likely degenerative spondylolisthesis at L1-2 and L3-4 levels as above. No pars defects. No acute fracture or dislocation. Dictated by: Bear Gomez M.D. on 12/14/2022 at 11:10 Approved by: Bear Gomez M.D. on 12/14/2022 at 12:33
== END ==
PROVIDERS: PCP Family Medicine; Referring Provider Physical Medicine & Rehabilitation Pain Medicine; Visit Provider Physical Medicine & Rehabilitation Pain Medicine
DX: M51.36 Other intervertebral disc degeneration, lumbar region (principal); M51.37 Other intervertebral disc degeneration, lumbosacral region; M47.816 Spondylosis without myelopathy or radiculopathy, lumbar region; M47.817 Spondylosis without myelopathy or radiculopathy, lumbosacral region; M48.061 Spinal stenosis, lumbar region without neurogenic claudication; M48.07 Spinal stenosis, lumbosacral region; M54.50 Low back pain, unspecified
CPT/HCPCS: 72131

== ENCOUNTER → 2023-02-14 13:59 | Outpatient (CLI) | payer MEDICARE, OTHER, SELFPAY ==
--- NOTE | 2023-02-14 | DI.CT.S_ITS ---
PROCEDURE: CT UE RT WO CON INDICATIONS: Presence of right artificial shoulder joint TECHNIQUE: Noncontrast 1-1.5 mm thick sections acquired from the acromioclavicular joint to the inferior scapula, with coronal and sagittal reformatting. COMPARISON: [facility], CR, XR SHOULDER 2+ VIEWS RIGHT, 02/04/2023, 15:07. FINDINGS: Image quality: Excellent except for metal artifact centered on the humeral head area of the right shoulder arthroplasty.. Bones: AC joint [id number] degenerative osteoarthritis is present. A significant unexpected finding is the presence of a fracture at the base of the a chromium, not visible on recent plain film imaging from [facility] 02/04/23. This is best seen on axial source images extending from the superior margin of the AC joint inferiorly across the a chromium base. No callus bridging this fracture plane is seen. The arthroplasty margins where well visualized appear free of disruption or loosening. Soft tissues: No abnormal synovial protrusion or inflammatory change is found. IMPRESSION: Vertically oriented moderately angulated fracture at the base of the a chromium, without callus bridging the fracture planes. Chronicity is uncertain. Metal artifact as discussed, centered on the humeral head component of the arthroplasty. No sign of arthroplasty loosening or disruption. Dictated by: Jean Swift M.D. on 02/15/2023 at 16:34 Approved by: Jean Swift M.D. on 02/15/2023 at 16:40
== END ==
PROVIDERS: PCP Family Medicine; Referring Provider Orthopaedic Surgery; Visit Provider Orthopaedic Surgery
DX: M19.011 Primary osteoarthritis, right shoulder (principal); S42.031A Displaced fracture of lateral end of right clavicle, initial encounter for closed fracture; Z96.611 Presence of right artificial shoulder joint
CPT/HCPCS: 73200

== ENCOUNTER → 2023-02-18 10:28 | Outpatient (CLI) | payer MEDICARE, OTHER, SELFPAY | PROVIDERS: PCP Family Medicine; Visit Provider Physician Assistant | DX: R30.0 Dysuria (principal) | CPT/HCPCS: 87077; 87086; 87186 ==

== ENCOUNTER → 2023-03-14 12:35 | Outpatient (CLI) | payer MEDICARE, OTHER, SELFPAY ==
--- NOTE | 2023-03-14 | DI.RAD.S_ITS ---
Bone Density Report Name: SHAE DUNCAN Age: 72 Sex: Female Ethnicity: White Date of : 1950 Indication: postmenopausal; screening for osteoporosis; Referring Provider: BROOK CRAIG Study: Bone densitometry was performed. Exam Date: March 14, 2023 Accession number: [id number] Bone Density: Region BMD T-score Z-score Classification AP Spine(L1, L2, L3) 0.842 -1.6 0.7 Osteopenia Femoral Neck (Left) 0.622 -2.0 0.0 Osteopenia Total Hip (Left) 0.731 -1.7 0.0 Osteopenia Femoral Neck (Right) 0.685 -1.5 0.6 Osteopenia Total Hip (Right) 0.740 -1.7 0.1 Osteopenia Total Hip Mean 0.736 -1.7 0.1 Osteopenia World Health Organization criteria for BMD impression classify patients as: Normal (T-score at or above -1.0), Osteopenia (T-score between -1.0 and -2.5), or Osteoporosis (T-score at or below -2.5). 10-year Fracture Risk: FRAX not reported because: Treated for osteoporosis Impression: The patient has low bone mass, based on the Left Femoral Neck T-score. Discussion: It is important to ask patients whether they are taking their medications and to encourage continued and appropriate compliance with their osteoporosis therapies to reduce fracture risk. It is also important to review their risk factors and encourage appropriate calcium and vitamin D intakes, exercise, fall prevention and other lifestyle measures. Follow-Up: Consider a repeat BMD and Vertebral Fracture Assessment (VFA) exam in 2 years or sooner if medically necessary, to reassess this patient's status. Reported by: MABEL SOLIS M.D. on 03/14/2023 1:03:00 PM.
== END ==
PROVIDERS: PCP Nurse Practitioner Family; Referring Provider Nurse Practitioner Family; Visit Provider Nurse Practitioner Family
DX: M81.0 Age-related osteoporosis without current pathological fracture (principal); Z78.0 Asymptomatic menopausal state; Z90.710 Acquired absence of both cervix and uterus
CPT/HCPCS: 77080

== ENCOUNTER → 2023-04-08 13:43 | Outpatient (CLI) | payer MEDICARE, OTHER, SELFPAY | PROVIDERS: PCP Nurse Practitioner Family; Visit Provider Physician Assistant | DX: R30.0 Dysuria (principal); R35.0 Frequency of micturition | CPT/HCPCS: 87077; 87086; 87186 ==

== ENCOUNTER 2023-06-06 21:04 | Emergency (ER) | payer MEDICARE, OTHER, SELFPAY ==
[2023-06-06 21:13] VITALS: BP 182/79; PULSE 60; RESP 16; TEMP 36.6; O2SAT 94; BMI 21.5
--- NOTE | 2023-06-06 22:14 | DI.CT.S_ITS ---
PROCEDURE: CT HEAD/BRAIN WO CON INDICATIONS: fall hit head TECHNIQUE: Noncontrast 4.5 mm thick angled axial sections acquired from the foramen magnum to the vertex, with coronal and sagittal reformats. For radiation dose reduction, the following was used: automated exposure control, adjustment of mA and/or kV according to patient size. COMPARISON: None. FINDINGS: Image quality: Excellent. CSF spaces: Basal cisterns are patent. No extra-axial fluid collections. The ventricles are symmetric in size and shape. Brain: No acute intracranial hemorrhage or mass effect. There is cerebral volume loss for age, with resultant ventricular and sulcal prominence. There are periventricular and deep white matter chronic small vessel ischemic changes. There is intracranial internal carotid artery atherosclerosis. Skull and face: Calvarium and visualized facial bones appear intact, without suspicious lesions. Sinuses: Visualized sinuses and mastoids are clear. IMPRESSION: No acute intracranial pathology. Approved by: Gerard Pretty M.D. on 06/06/2023 at 22:50
--- NOTE | 2023-06-06 22:15 | DI.CT.S_ITS ---
PROCEDURE: CT CERVICAL SPINE WO CON INDICATIONS: fall hit head TECHNIQUE: Noncontrast 3 mm thick sections acquired from the skull base to the T4 level. Sagittal and coronal reformats were then constructed. For radiation dose reduction, the following was used: automated exposure control, adjustment of mA and/or kV according to patient size. COMPARISON: None. FINDINGS: Image quality: Excellent. Bones: No acute osseous fracture. There is 2 mm grade 1 anterolisthesis at C4-5, there is 3 mm grade 1 retrolisthesis at C5-6, and 1 mm grade 1 anterolisthesis at C6-7 and C7-T1. Multifocal disc space narrowing degenerative endplate changes are seen, most prominently at the C5-6 level. There is multilevel uncovertebral joint and facet hypertrophy. Visualized superior ribs are intact. Bones are osteopenic. Soft tissues: Prevertebral soft tissues are normal in thickness. No paravertebral hematomas. No apical pneumothoraces. Cardiac pacemaker is partially imaged. Sternotomy wires are noted. IMPRESSION: 1. No acute cervical spine fracture. 2. Multilevel grade 1 spondylolisthesis is most likely related to chronic degenerative changes. Approved by: Gerard Pretty M.D. on 06/06/2023 at 22:55
--- NOTE | 2023-06-06 23:15 | ED.HEATRA ---
HPI - Head Injury General Chief complaint: Head Injury Stated complaint: fall, head injury Time Seen by Provider: 06/06/23 23:01 Source: patient Mode of arrival: Ambulatory History of Present Illness HPI Narrative: 72-year-old female with history of Brugada syndrome with AICD presents by private vehicle for head injury. Patient slipped in mud and fell, striking her left face against the ground. Denies loss of consciousness, denies use of blood thinners. Related Data Home Medications Medication Instructions Recorded Confirmed Baby Aspirin 81 mg DAILY 01/25/22 04/08/23 clonazepam 0.5 mg tablet 0.5 mg PO BID 01/25/22 04/08/23 lamotrigine 150 mg tablet 150 mg DAILY 01/25/22 04/08/23 levothyroxine 50 mcg tablet 50 mcg DAILY 01/25/22 04/08/23 quinidine gluconate 324 mg 324 mg PO BID 01/25/22 04/08/23 tablet,extended release rosuvastatin 10 mg tablet 10 mg BEDTIME 01/25/22 04/08/23 topiramate 100 mg tablet 100 mg PO DAILY 01/25/22 04/08/23 bupropion HCl 150 mg tablet,12 hr 150 mg PO QAM 02/18/23 04/08/23 sustained-release denosumab 60 mg/mL subcutaneous mg SUBCUT 02/18/23 04/08/23 syringe (Prolia) losartan 100 mg tablet 100 mg PO DAILY 02/18/23 04/08/23 zolpidem 5 mg tablet 5 mg PO ONCE PM PRN 02/18/23 04/08/23 Previous Rx's Medication Instructions Recorded cephalexin 500 mg capsule 500 mg PO QID #20 caps 04/08/23 Allergies Allergy/AdvReac Type Severity Reaction Status Date / Time amiodarone Allergy Verified 04/08/23 14:03 lidocaine Allergy Verified 04/08/23 14:03 Review of Systems Review of Systems Narrative: Negative except as noted above Patient History Social History Smoking Status: Never smoker Smoking Status: Never smoker Substance Use Type: does not use Exam Initial Vital Signs Initial Vital Signs: Vital Signs Temperature 97.8 F 06/06/23 21:13 Pulse Rate 60 06/06/23 21:13 Respiratory Rate 16 06/06/23 21:13 Blood Pressure 182/79 H 06/06/23 21:13 Pulse Oximetry 94 06/06/23 21:13 Oxygen Delivery Method Room Air 06/06/23 21:13 Const: Awake, alert, no acute distress Eyes: PERRL, EOMI, conjunctiva normal Cardiac: regular rate, regular rhythm RESP: unlabored, clear bilaterally, no wheezing Skin: 4cm irregular laceration lateral to left eyebrow Neuro: AO x3, CN II-XII grossly intact, moves all extremities Procedures Laceration Repair Laceration 1: Site: face Side (If applicable): left Size (cm): 4 Depth: simple, single layer Local Anesthetic: lidocaine 1% and with epi Amount of anesthesia used (mL): 4 Pre-repair: wound explored and irrigated extensively Skin layer closed with: nylon Skin layer suture size: 5-0 Number of sutures: 8 Technique: simple, interrupted Course Course Course Narrative: Ground level slip and fall. CT brain and C-spine negative for acute findings. Laceration was copiously irrigated at bedside by nursing staff and thoroughly debrided. Repaired per procedure note. Patient did have hematoma as results of procedure, and she was advised to use ice packs to decrease swelling. Wound care instructions discussed at bedside. ED return precautions discussed at bedside. Patient expressed understanding of the plan and is in agreement at this time. All questions answered at the time of discharge. Orders Ordered: ED Orders 06/06/23 22:14 CT head/brain wo con Stat 06/06/23 22:15 CT cervical spine wo con Stat Discontinued Medications Diphtheria/Tetanus/Acell Pertussis (Tet,Diph,Pertuss(Acell),Vac/Pf 0.5 Ml Syringe) 0.5 ml IM .ONCE ONE Stop: 06/06/23 23:14 Last Admin: 06/06/23 23:50 Dose: 0.5 ml Documented By: JUAN M Lidocaine/Epinephrine (Lidocaine 1% W/Epi) 20 ml SUBCUT NOW ONE Stop: 06/06/23 23:14 Last Admin: 06/06/23 23:47 Dose: 20 ml Documented By: JUAN M Vital Signs Vital signs: Vital Signs - 8 hr 06/06/23 21:13 06/07/23 00:25 06/07/23 00:38 Temperature 97.8 F 98.6 F 98.6 F Pulse Rate 60 62 62 Respiratory Rate 16 20 20 Blood Pressure 182/79 H 164/75 H 164/75 H Pulse Oximetry 94 95 95 Oxygen Delivery Method Room Air Room Air Room Air MDM - Head Injury Differential Diagnosis Differential diagnosis: Likely concussion without loss of consciousness, closed head injury and other (facial laceration) Discharge Plan Departure Patient Disposition: Home Clinical Impression: Laceration of forehead Qualifiers: Encounter type: initial encounter Qualified Code(s): S01.81XA - Laceration without foreign body of other part of head, initial encounter Fall from slipping on mud Qualifiers: Encounter type: initial encounter Qualified Code(s): W01.0XXA - Fall on same level from slipping, tripping and stumbling without subsequent striking against object, initial encounter Instructions: DI for Laceration Repair -- Simple Prescriptions: No Action bupropion HCl 150 mg tablet sustained-release 12 hr 150 mg PO QAM Prolia 60 mg/mL syringe SUBCUT Patient Comments: Inject subcutaneously every 6 months losartan 100 mg tablet 100 mg PO DAILY zolpidem 5 mg tablet 5 mg PO ONCE PM PRN cephalexin 500 mg capsule 500 mg PO QID Qty: 20 0RF lamotrigine 150 mg tablet 150 mg DAILY Patient Comments: Take 1 tab by mouth every morning and 1/2 tab every evening quinidine gluconate 324 mg tablet extended release 324 mg PO BID Patient Comments: TAKE ONE TABLET BY MOUTH EVERY TWELVE HOURS Rx Instructions: takes every 12 hours levothyroxine 50 mcg tablet 50 mcg DAILY Patient Comments: Take 1 tablet by mouth daily for hypothyroidism. topiramate 100 mg Tablet 100 mg PO DAILY rosuvastatin 10 mg tablet 10 mg BEDTIME Patient Comments: Take 1 tablet by mouth daily for mixed hyperlipidemia. Baby Aspirin 81 mg 81 mg DAILY clonazepam 0.5 mg Tablet 0.5 mg PO BID Referrals: Sara Rehman RN [Primary Care Provider] - Stand Alone Forms: Patient Portal/API
--- NOTE | 2023-06-06 23:30 | PC.NURSE ---
Wound to L. forehead irrigated X 200 mL povidone iodine/SNS solution. Pt. tolerated well.
[2023-06-06] MEDS: LIDOCAINE 1% W/EPI 20 ML SUBCUT (23:47)
[2023-06-06] MEDS: TET,DIPH,PERTUSS(ACELL),VAC/PF 0.5 ML SYRINGE IM (23:50)
[2023-06-07 00:25] VITALS: BP 164/75; PULSE 62; RESP 20; TEMP 37; O2SAT 95
[2023-06-07 00:38] VITALS: BP 164/75; PULSE 62; RESP 20; TEMP 37; O2SAT 95
== END 2023-06-07 00:25 | disposition home or self-care (01) ==
PROVIDERS: Emergency Provider Emergency Medicine; PCP Nurse Practitioner Family
DX: S01.81XA Laceration without foreign body of other part of head, initial encounter (principal); M43.12 Spondylolisthesis, cervical region; M43.13 Spondylolisthesis, cervicothoracic region; W01.198A Fall on same level from slipping, tripping and stumbling with subsequent striking against other object, initial encounter; Z95.810 Presence of automatic (implantable) cardiac defibrillator
CPT/HCPCS: 12013; 70450; 72125; 99283; 99284; 90715

== ENCOUNTER 2023-11-15 11:36 | Emergency (ER) | payer MEDICARE, OTHER, SELFPAY ==
[2023-11-15 11:50] VITALS: BP 196/74; PULSE 67; RESP 18; TEMP 36.4; O2SAT 99; BMI 21.4
--- NOTE | 2023-11-15 11:54 | ED.FALL ---
HPI - Fall <Estela Chapman PA-C - Last Filed: 11/15/23 13:53> General Chief Complaint: Extremity Injury, Lower Stated Complaint: fall, rt knee pain Time Seen by Provider: 11/15/23 11:46 History of Present Illness HPI Narrative: 73-year-old female presents today for a fall that occurred last night between 830 and 9:00 p.m.. She was working in her kitchen when she turned she tripped over her dog. She landed directly on her right knee cap. She is denying any precipitating events and recalls the entire event. She did not strike her head. She states she was having a gathering and her friends and family helped her up. She did take an Advil last night and did apply ice. She is complaining of pain and swelling to the right anterior knee. No prior history is to this particular extremity. She is denying any weakness, numbness, tingling, loss of sensation. She is denying any issues with the hip or lower leg or ankle. She no longer takes aspirin daily. History is significant for Brugada with an AICD. She reports no events. All other systems are reviewed and are negative. Related Data Home Medications Medication Instructions Recorded Confirmed Baby Aspirin 81 mg DAILY 01/25/22 04/08/23 clonazepam 0.5 mg tablet 0.5 mg PO BID 01/25/22 04/08/23 lamotrigine 150 mg tablet 150 mg DAILY 01/25/22 04/08/23 levothyroxine 50 mcg tablet 50 mcg DAILY 01/25/22 04/08/23 quinidine gluconate 324 mg 324 mg PO BID 01/25/22 04/08/23 tablet,extended release rosuvastatin 10 mg tablet 10 mg BEDTIME 01/25/22 04/08/23 topiramate 100 mg tablet 100 mg PO DAILY 01/25/22 04/08/23 bupropion HCl 150 mg tablet,12 hr 150 mg PO QAM 02/18/23 04/08/23 sustained-release denosumab 60 mg/mL subcutaneous mg SUBCUT 02/18/23 04/08/23 syringe (Prolia) losartan 100 mg tablet 100 mg PO DAILY 02/18/23 04/08/23 zolpidem 5 mg tablet 5 mg PO ONCE PM PRN 02/18/23 04/08/23 Previous Rx's Medication Instructions Recorded cephalexin 500 mg capsule 500 mg PO QID #20 caps 04/08/23 Allergies Allergy/AdvReac Type Severity Reaction Status Date / Time amiodarone Allergy Severe Chest Pain Verified 11/15/23 11:49 lidocaine Allergy Severe Chest Pain Verified 11/15/23 11:49 Patient History <Estela Chapman PA-C - Last Filed: 11/15/23 13:53> Social History Smoking Status: Never smoker Smoking Status: Never smoker Substance Use Type: does not use Exam <Estela Chapman PA-C - Last Filed: 11/15/23 13:53> Narrative Exam Narrative: Smiling, no distress, lying in the exam table. Ice pack applied to right knee. Initial Vital Signs Initial Vital Signs: Vital Signs Temperature 97.6 F 11/15/23 11:50 Pulse Rate 67 11/15/23 11:50 Respiratory Rate 18 11/15/23 11:50 Blood Pressure 196/74 H 11/15/23 11:50 Pulse Oximetry 99 11/15/23 11:50 Oxygen Delivery Method Room Air 11/15/23 11:50 Reviewed and are normal except for elevated blood pressure in a known hypertension patient. Rechecked blood pressure 135/62 at 12:05 p.m. HR 60/min. Const General: cooperative, healthy appearing, comfortable, well developed, well groomed, No acute distress and No frail appearing HENMT Head: normal to inspection and atraumatic Eyes General: Yes appearance normal, both eyes and all related structures Neuro Other: No focal neuro deficits. Normal sensory intact to the lower extremity. Extrem Right lower extremity: normal capillary refill and knee (Mild swelling about the medial aspect.) Details: swelling and ecchymosis (anterior knee, light purple discoloration); no abrasions, no lacerations and no deformity Other: Focal knee examination post-radiographs: Able to fully extend, she is able to flex on her own about 90?, with passive flexion she has exquisite pain pointing to her patellar tendon. She is negative for patella ballottement no laxity. No crepitation. No medial or lateral joint line tenderness. Anterior/posterior drawer is negative. No popliteal swelling, she is tender in the hamstring but it is intact. Varus and valgus stressing cause her pain at the patella tendon area. No calf tenderness. No issues identified with the hip or ankle. Distal strength is grossly intact against resistance. Normal dorsiflexion and extension. Full ankle ROM. <DO Drake Concepcion Last Filed: 11/16/23 07:29> Initial Vital Signs Initial Vital Signs: Vital Signs Temperature 97.6 F 11/15/23 11:50 Pulse Rate 67 11/15/23 11:50 Respiratory Rate 18 11/15/23 11:50 Blood Pressure 196/74 H 11/15/23 11:50 Pulse Oximetry 99 11/15/23 11:50 Oxygen Delivery Method Room Air 11/15/23 11:50 Course <Estela Chapman PA-C - Last Filed: 11/15/23 13:53> Orders Ordered: ED Orders 11/15/23 11:55 XR knee RT 3V Stat Reevaluation(s) Reevaluation #1: Re-evaluated following knee immobilizer application. She feels comfortable in this, she is road tested with her crutches and she is safe. She is able to apply some weightbear but still has some discomfort in the anterior knee in the infrapatellar region. Vital Signs Vital signs: Vital Signs - 8 hr 11/15/23 11:50 11/15/23 13:40 Temperature 97.6 F Pulse Rate 67 63 Respiratory Rate 18 14 Blood Pressure 196/74 H 130/75 Pulse Oximetry 99 100 Oxygen Delivery Method Room Air Room Air <Kelly Reyes DO - Last Filed: 11/16/23 07:29> Orders Ordered: ED Orders 11/15/23 11:55 XR knee RT 3V Stat Vital Signs Vital signs: Vital Signs - 8 hr 11/15/23 11:50 11/15/23 13:40 Temperature 97.6 F Pulse Rate 67 63 Respiratory Rate 18 14 Blood Pressure 196/74 H 130/75 Pulse Oximetry 99 100 Oxygen Delivery Method Room Air Room Air MDM - Fall <Estela Chapman PA-C - Last Filed: 11/15/23 13:53> Medical Records Attestation: I reviewed the patient's medical records. Imaging Data Extremity x-ray #1: My Impression: Deferred to radiologist. Clinically, tender overlying patellar tendon. Radiologist's Impression: PROCEDURE: XR KNEE RT 3V INDICATIONS: Fall onto RIGHT knee last p.m. Pain swelling TECHNIQUE: 3 views of the knee were acquired. COMPARISON: None. FINDINGS: Bones: No definite fractures or dislocations. No suspicious bony lesions. On the patellar sunrise view the anterior medullary space near the junction of the middle and lateral thirds of the patella is slightly irregular but this is considered within the range of normal variation given the absence of focal soft tissue swelling immediately ventral to this appearance. Soft tissues: No joint effusion. No suspicious soft tissue calcifications. IMPRESSION: No definite acute bony abnormality or significant effusion. Consider obtaining delayed plain films if hidden fracture is clinically suspected. Dictated by: Jean Swift M.D. on 11/15/2023 at 13:12 Approved by: Jean Swift M.D. on 11/15/2023 at 13:14 [facility] Narrative Medical decision making narrative: Her x-rays are read as negative, she is tender overlying the patellar tendon and patella itself, there is no crepitation and there is no acute clinical findings on exam otherwise to suggest laxity were derangement. She is fitted with a knee immobilizer and crutches, road tested and she is safe. She feels comfortable in this splint. I have asked her to contact her primary care provider for follow-up, she may improve over the weekend but she could still benefit from physical therapy, if she worsens or continues to have pain then she would certainly need orthopedic consult. She agrees with this plan. We discussed ice, elevation, avoiding re-injury, Tylenol or ibuprofen as needed for pain. Red flag warning signs reviewed in detail. Please return to the ER if you have increased swelling, pain, temperature changes or color changes or worsening symptoms overall. Recommend assisted weightbear at minimum. Discharge Plan Departure Patient Disposition: Home Clinical Impression: Contusion of knee with skin surface intact Patellar tendon strain Qualifiers: Encounter type: initial encounter Laterality: right Qualified Code(s): S86.811A - Strain of other muscle(s) and tendon(s) at lower leg level, right leg, initial encounter Instructions: DI for Knee Pain Activity Restrictions/Additional Instructions: You have been fitted with a knee immobilizer and crutches, this will protect the knee and help you avoid new injury or re-injury. Continue icing, elevate, use pillow support to flex the knee when out of the knee brace, apply ice 10-15 minutes at a time, continue your Tylenol or ibuprofen as needed for pain and please contact your primary care provider for follow-up. You may have an injury that was not seen on x-rays today and may require reimaging in 1-2 weeks. If your symptoms worsen please return to the emergency department this includes knee swelling, pain, any new symptoms or any worrisome symptoms such as cold to the touch, loss of sensation. Prescriptions: No Action bupropion HCl 150 mg tablet sustained-release 12 hr 150 mg PO QAM Prolia 60 mg/mL syringe SUBCUT Patient Comments: Inject subcutaneously every 6 months losartan 100 mg tablet 100 mg PO DAILY zolpidem 5 mg tablet 5 mg PO ONCE PM PRN cephalexin 500 mg capsule 500 mg PO QID Qty: 20 0RF lamotrigine 150 mg tablet 150 mg DAILY Patient Comments: Take 1 tab by mouth every morning and 1/2 tab every evening quinidine gluconate 324 mg tablet extended release 324 mg PO BID Patient Comments: TAKE ONE TABLET BY MOUTH EVERY TWELVE HOURS Rx Instructions: takes every 12 hours levothyroxine 50 mcg tablet 50 mcg DAILY Patient Comments: Take 1 tablet by mouth daily for hypothyroidism. topiramate 100 mg Tablet 100 mg PO DAILY rosuvastatin 10 mg tablet 10 mg BEDTIME Patient Comments: Take 1 tablet by mouth daily for mixed hyperlipidemia. Baby Aspirin 81 mg 81 mg DAILY clonazepam 0.5 mg Tablet 0.5 mg PO BID Referrals: Sara Rehman RN [Primary Care Provider] - Stand Alone Forms: Patient Portal/API ED Sign-out <Kelly Reyes DO - Last Filed: 11/16/23 07:29> Cosign ED Attending Mariam Attestation: I was available for consultation.
--- NOTE | 2023-11-15 12:08 | PC.NURSE ---
patient tripped and fell over her dog. She has a bruise on her right knee but no deformity. She can bear weight with 8/10 pain.
[2023-11-15 13:40] VITALS: BP 130/75; PULSE 63; RESP 14; O2SAT 100
== END 2023-11-15 13:42 | disposition home or self-care (01) ==
PROVIDERS: Emergency Provider Physician Assistant Medical; PCP Nurse Practitioner Family
DX: S76.111A Strain of right quadriceps muscle, fascia and tendon, initial encounter (principal); S80.01XA Contusion of right knee, initial encounter; W01.0XXA Fall on same level from slipping, tripping and stumbling without subsequent striking against object, initial encounter
CPT/HCPCS: 29505; 73562; 99283

== ENCOUNTER → 2024-02-26 08:09 | Outpatient (CLI) | payer MEDICARE, OTHER, SELFPAY ==
[2024-02-26 10:54] LABS: Add Manual Diff / Slide Review NO; Basophils Absolute Auto 100 /uL (0-100); Basophils Percent Auto 0.9 % (0-2); Eosinophils Absolute Auto 200 /uL (0-450); Hematocrit 38.9 % (36-46); Hemoglobin 13.3 g/dL (12.0-16.0); Lymphocytes Absolute Auto 1100 /uL (1100-4500); Lymphocytes Percent Auto 18.4 % (25-40); Mean Corpuscular HGB Conc 34.1 % (30-36); Mean Corpuscular Hemoglobin 31.4 PG (26-34); Mean Corpuscular Volume 92.1 fL (80-100); Monocytes Absolute Auto 500 /uL (0-900); Monocytes Percent Auto 8.9 % (3-14); Neutrophils Absolute Auto 4200 /uL (1500-7000); Neutrophils Percent Auto 68.8 % (50-75); Platelet Count 193 X10^3/uL (150-400); Red Blood Cell Count 4.22 X10^6/uL (4.0-5.2); Red Cell Distribution Width 13.8 % (11.6-14.8); White Blood Cell Count 6.1 X10^3/uL (4.5-11.0)
[2024-02-26 11:08] LABS: Alanine Aminotransferase 31 IU/L (<35); Albumin 4.4 g/dL (3.5-5.0); Albumin Globulin Ratio 1.8 (1.0-2.8); Alkaline Phosphatase 68 U/L (38-126); Aspartate Aminotransferase 42 IU/L (14-36); BUN Creatinine Ratio 20.4 (6-22); Bilirubin Total 0.8 mg/dL (0.2-1.3); Blood Urea Nitrogen 19 mg/dL (7-17); Calcium 9.2 mg/dL (8.4-10.2); Carbon Dioxide 25 mmol/L (22-32); Chloride 101 mmol/L (98-107); Cholesterol 123 mg/dL (140-199); Estimated Glomerular Filt Rate > 60 mL/min (>60); Globulin 2.5 g/dL (1.7-4.1); Glucose 85 mg/dL (80-110); HDL Cholesterol 49 mg/dL (40-60); HEMOLYSIS < 15 (0-50); Iron 123 ug/dL (37-170); LDL Cholesterol Calculated 49 mg/dL (<100); Magnesium 2.5 mg/dL (1.6-2.3); Potassium 3.9 mmol/L (3.4-5.1); Sodium 136 mmol/L (137-145); Total Protein 6.9 g/dL (6.3-8.2); Triglycerides 123 mg/dL (35-150)
[2024-02-26 11:17] LABS: Total Iron Binding Capacity 433 ug/dL (265-497)
[2024-02-26 11:38] LABS: TSH w/ Reflex to FT4 1.03 uIU/mL (0.47-4.68)
[2024-02-26 11:39] LABS: Ferritin 27 ng/mL (11-264)
[2024-02-26 12:14] LABS: Folate > 20.0 ng/mL (2.76-20.0); Vitamin B12 739 pg/mL (239-931)
== END ==
PROVIDERS: PCP Student in an Organized Health Care Education/Training Program; Referring Provider Nurse Practitioner Family; Visit Provider Nurse Practitioner Family
DX: E78.5 Hyperlipidemia, unspecified (principal); I10 Essential (primary) hypertension; G47.62 Sleep related leg cramps; E03.9 Hypothyroidism, unspecified
CPT/HCPCS: 36415; 80053; 80061; 82607; 82728; 82746; 83540; 83550; 83735; 84443; 85025

== ENCOUNTER 2024-10-23 13:17 | Emergency (ER) | payer MEDICARE, OTHER, SELFPAY ==
[2024-10-23 13:20] VITALS: BP 163/69; PULSE 67; RESP 16; TEMP 36.9; O2SAT 97; BMI 21.7
[2024-10-23 13:23] VITALS: PULSE 70; O2SAT 99
--- NOTE | 2024-10-23 13:25 | DI.CT.S_ITS ---
PROCEDURE: CT FACIAL BONES WO CON INDICATIONS: Fall/injury TECHNIQUE: Noncontrast 2.5 mm thick axial images acquired from the mandible through the frontal sinuses, with coronal and sagittal reformatting. For radiation dose reduction, the following was used: automated exposure control, adjustment of mA and/or kV according to patient size. COMPARISON: None. FINDINGS: Image quality: Excellent. Bones and teeth: Orbital barraza are intact. Sinus barraza show no fracture or deformity. Nasal bones and septum are intact. Visualized portions of the mandible demonstrate no fractures or subluxation. Zygomatic arches are intact. Pterygoid plates are intact. Visualized portions of the skull base and auditory canals are intact. Sinuses: Paranasal sinuses are aerated, without fluid levels, mucosal thickening, or mucoceles. Mastoid air cells are aerated. Soft tissues: Subcutaneous hematoma in the right face in the infraorbital region. No retro-orbital hematoma. Punctate radiodense foci along the skin surface at the lateral face. No enlarged lymph nodes. No soft tissue lacerations or debris. Vascular: Visualized vascular structures appear normal in the absence of contrast. Bony vascular foramina and canals are intact. IMPRESSION: Right face infraorbital subcutaneous hematoma. No acute facial fracture. A few radiodense foci along the skin surface could indicate small foreign bodies. Approved by: Gerard Pretty M.D. on 10/23/2024 at 14:17
--- NOTE | 2024-10-23 13:25 | DI.CT.S_ITS ---
PROCEDURE: CT CERVICAL SPINE WO CON INDICATIONS: Fall/injury TECHNIQUE: Noncontrast 3 mm thick sections acquired from the skull base to the T4 level. Sagittal and coronal reformats were then constructed. For radiation dose reduction, the following was used: automated exposure control, adjustment of mA and/or kV according to patient size. COMPARISON: [facility], CT, CT CERVICAL SPINE WO CON, 06/06/2023, 22:23. FINDINGS: Image quality: Excellent. Bones: No acute fractures or dislocations. Unchanged anterolisthesis at C4-5 and C6-7, and retrolisthesis at C5-6. Multilevel disc space narrowing and degenerative endplate changes. Multilevel uncovertebral joint and facet hypertrophy. Visualized superior ribs are intact. Soft tissues: Prevertebral soft tissues are normal in thickness. No paravertebral hematomas. No apical pneumothoraces. Left chest PICC maker is partially imaged. Sternotomy wires are present. IMPRESSION: No acute displaced fracture or traumatic subluxation. Approved by: Gerard Pretty M.D. on 10/23/2024 at 14:13
--- NOTE | 2024-10-23 13:25 | DI.CT.S_ITS ---
PROCEDURE: CT HEAD/BRAIN WO CON INDICATIONS: Fall/injury TECHNIQUE: Noncontrast 4.5 mm thick angled axial sections acquired from the foramen magnum to the vertex, with coronal and sagittal reformats. For radiation dose reduction, the following was used: automated exposure control, adjustment of mA and/or kV according to patient size. COMPARISON: [facility], CT, CT HEAD/BRAIN WO CON, 06/06/2023, 22:23. FINDINGS: Image quality: Diagnostic. CSF spaces: Basal cisterns are patent. No extra-axial fluid collections. The ventricles are symmetric in size and shape. Brain: No acute intracranial hemorrhage or mass effect. There is moderate cerebral volume loss, with resultant ventricular and sulcal prominence. There are periventricular and deep white matter chronic small vessel ischemic changes. There is intracranial internal carotid artery atherosclerosis. Skull and face: Calvarium and visualized facial bones appear intact, without suspicious lesions. Sinuses: Visualized sinuses and mastoids are clear. IMPRESSION: No acute intracranial pathology. Approved by: Gerard Pretty M.D. on 10/23/2024 at 14:05
[2024-10-23 13:30] VITALS: O2SAT 97
--- NOTE | 2024-10-23 13:31 | ED.FALL ---
HPI - Fall General Chief Complaint: Fall Stated Complaint: Fall, face injury, no blood thinners Time Seen by Provider: 10/23/24 13:25 History of Present Illness HPI Narrative: Patient here for ground level fall has bruising skin injury skin tear to the right cheek. Patient is not on any blood thinners. Patient was working outside tripped on a air compressor and landed in the gravel. Only complains of right facial pain. No loss of consciousness. No vision changes. No nausea or vomiting. No headache. Does not want anything for pain. Has small abrasion to the top of the left hand but does not want x-rays of the left hand. Tetanus is up-to-date according to the patient. Related Data Home Medications Medication Instructions Recorded Confirmed cholecalciferol (vitamin D3) 50 50 mcg PO DAILY 12/16/23 07/24/24 mcg (2,000 unit) tablet cyanocobalamin (vitamin B-12) 1,000 mcg PO DAILY 12/16/23 07/24/24 1,000 mcg capsule selenium 100 mcg tablet 100 mcg PO DAILY 12/16/23 07/24/24 zinc gluconate 50 mg tablet 50 mg PO DAILY 12/16/23 07/24/24 Previous Rx's Medication Instructions Recorded albuterol sulfate 90 mcg/actuation 2 puff inhalation Q6H PRN 04/06/24 aerosol inhaler shortness of breath or wheezing #8.5 grams levothyroxine 50 mcg tablet 50 mcg PO DAILY #90 tabs 04/06/24 rosuvastatin 10 mg tablet 10 mg PO BEDTIME #90 tabs 04/06/24 triamcinolone acetonide 0.5 % 1 applic topical DAILY #15 grams 04/06/24 topical ointment quinidine gluconate 324 mg 324 mg PO BID #240 tabs 04/16/24 tablet,extended release topiramate 100 mg tablet 100 mg PO DAILY #90 tabs 04/17/24 denosumab 60 mg/mL subcutaneous 60 mg SUBCUT [id number] #1 mL 07/24/24 syringe (Prolia) lamotrigine 150 mg tablet 150 mg PO BID #120 tabs 07/24/24 losartan 100 mg tablet 100 mg PO DAILY #90 tabs 07/24/24 clonazepam 0.5 mg tablet 0.25 mg (1/2 x 0.5 mg) PO DAILY 08/31/24 #30 tabs bupropion HCl 100 mg tablet 100 mg PO DAILY #90 tabs 09/29/24 Allergies Allergy/AdvReac Type Severity Reaction Status Date / Time amiodarone Allergy Severe Chest Pain Verified 10/23/24 13:29 lidocaine Allergy Severe Chest Pain Verified 10/23/24 13:29 Review of Systems Review of Systems Narrative: GENERAL: Negative chills, fatigue, malaise, fever, sweats. HEENT: Negative sinus pain, ear pain, sore throat RESPIRATORY: Negative dyspnea, cough CARDIOVASCULAR: Negative chest pain, palpitations GASTROINTESTINAL: Negative vomiting, nausea, abdominal pain : Negative dysuria, frequency, hematuria MUSCULOSKELETAL: Positive muscle or bony pain SKIN: Negative rash, skin lesions positive skin injury NEUROLOGIC: Negative weakness, numbness ROS Unobtainable: All systems reviewed & are unremarkable except as noted in HPI and below Patient History Social History Smoking Status: Never smoker Exam Narrative Exam Narrative: GENERAL: in no distress, not toxic not dyspneic HEAD: Normocephalic. There is large hematoma with skin tear to the right cheek. No active bleeding. EYES: Pupils equal round EOMI PERRLA no subconjunctival hematoma. No double vision with eye movements. No blurry vision. ENT: Mucous membranes moist. NECK: Trachea midline. No midline tenderness or step-off of the cervical spine. CARDIOVASCULAR: Regular rate and rhythm RESPIRATORY: Clear to auscultation. Breath sounds equal bilaterally. No wheezes, rales, or rhonchi. GASTROINTESTINAL: Abdomen soft, non-tender EXTREMITIES: No gross deformities. Small skin tear to the dorsum of the left hand. Nontender hand and wrist. BACK: No flank tenderness. NEURO: AOx4. Clear speech SKIN: Warm and dry PSYCH: Not anxious, is cooperative Initial Vital Signs Initial Vital Signs: Vital Signs Temperature 98.4 F 10/23/24 13:20 Pulse Rate 67 10/23/24 13:20 Respiratory Rate 16 10/23/24 13:20 Blood Pressure 163/69 H 10/23/24 13:20 Pulse Oximetry 97 10/23/24 13:20 Oxygen Delivery Method Room Air 10/23/24 13:20 Course Orders Ordered: Discontinued Medications Bacitracin (Bacitracin Oint 0.9 Gm Pckt) 1 applic TOP NOW ONE Stop: 10/23/24 13:36 Last Admin: 10/23/24 13:43 Dose: 1 applic Documented By: NATALY Vital Signs Vital signs: Vital Signs - 8 hr 10/23/24 13:20 10/23/24 13:23 10/23/24 13:30 Temperature 98.4 F Pulse Rate 67 70 Respiratory Rate 16 Blood Pressure 163/69 H Pulse Oximetry 97 99 97 Oxygen Delivery Method Room Air 10/23/24 14:00 Temperature Pulse Rate 61 Respiratory Rate Blood Pressure Pulse Oximetry 98 Oxygen Delivery Method MDM - Fall Imaging Data CT scan - head: Radiologist's Impression: [address] [address] [address] Scan Report Signed Patient: Daria Benedict MR#: [id number] : 1950 Acct:[id number] Age/Sex: 74 / F Date of Service: 10/23/24 Loc: ED Accession Number: [id number] Procedure: CT head/brain wo con Ordering Provider: Kendrick Lema MD PROCEDURE: CT HEAD/BRAIN WO CON INDICATIONS: Fall/injury TECHNIQUE: Noncontrast 4.5 mm thick angled axial sections acquired from the foramen magnum to the vertex, with coronal and sagittal reformats. For radiation dose reduction, the following was used: automated exposure control, adjustment of mA and/or kV according to patient size. COMPARISON: [facility], CT, CT HEAD/BRAIN WO CON, 06/06/2023, 22:23. FINDINGS: Image quality: Diagnostic. CSF spaces: Basal cisterns are patent. No extra-axial fluid collections. The ventricles are symmetric in size and shape. Brain: No acute intracranial hemorrhage or mass effect. There is moderate cerebral volume loss, with resultant ventricular and sulcal prominence. There are periventricular and deep white matter chronic small vessel ischemic changes. There is intracranial internal carotid artery atherosclerosis. Skull and face: Calvarium and visualized facial bones appear intact, without suspicious lesions. Sinuses: Visualized sinuses and mastoids are clear. IMPRESSION: No acute intracranial pathology. Approved by: Gerard Pretty M.D. on 10/23/2024 at 14:05 CT - cervical spine: Radiologist's Impression: [address] [address] [address] Scan Report Signed Patient: Daria Benedict MR#: [id number] : 1950 Acct:[id number] Age/Sex: 74 / F Date of Service: 10/23/24 Loc: ED Accession Number: [id number] Procedure: CT cervical spine wo con Ordering Provider: Kendrick Lema MD PROCEDURE: CT CERVICAL SPINE WO CON INDICATIONS: Fall/injury TECHNIQUE: Noncontrast 3 mm thick sections acquired from the skull base to the T4 level. Sagittal and coronal reformats were then constructed. For radiation dose reduction, the following was used: automated exposure control, adjustment of mA and/or kV according to patient size. COMPARISON: [facility], CT, CT CERVICAL SPINE WO CON, 06/06/2023, 22:23. FINDINGS: Image quality: Excellent. Bones: No acute fractures or dislocations. Unchanged anterolisthesis at C4-5 and C6-7, and retrolisthesis at C5-6. Multilevel disc space narrowing and degenerative endplate changes. Multilevel uncovertebral joint and facet hypertrophy. Visualized superior ribs are intact. Soft tissues: Prevertebral soft tissues are normal in thickness. No paravertebral hematomas. No apical pneumothoraces. Left chest PICC maker is partially imaged. Sternotomy wires are present. IMPRESSION: No acute displaced fracture or traumatic subluxation. Approved by: Gerard Pretty M.D. on 10/23/2024 at 14:13 CT face: Radiologist's Impression: [place] [address] CT Scan Report Signed Patient: Daria Benedict MR#: [id number] : 1950 Acct:[id number] Age/Sex: 74 / F Date of Service: 10/23/24 Loc: ED Accession Number: [id number] Procedure: CT facial bones wo con Ordering Provider: Kendrick Lema MD PROCEDURE: CT FACIAL BONES WO CON INDICATIONS: Fall/injury TECHNIQUE: Noncontrast 2.5 mm thick axial images acquired from the mandible through the frontal sinuses, with coronal and sagittal reformatting. For radiation dose reduction, the following was used: automated exposure control, adjustment of mA and/or kV according to patient size. COMPARISON: None. FINDINGS: Image quality: Excellent. Bones and teeth: Orbital barraza are intact. Sinus barraza show no fracture or deformity. Nasal bones and septum are intact. Visualized portions of the mandible demonstrate no fractures or subluxation. Zygomatic arches are intact. Pterygoid plates are intact. Visualized portions of the skull base and auditory canals are intact. Sinuses: Paranasal sinuses are aerated, without fluid levels, mucosal thickening, or mucoceles. Mastoid air cells are aerated. Soft tissues: Subcutaneous hematoma in the right face in the infraorbital region. No retro-orbital hematoma. Punctate radiodense foci along the skin surface at the lateral face. No enlarged lymph nodes. No soft tissue lacerations or debris. Vascular: Visualized vascular structures appear normal in the absence of contrast. Bony vascular foramina and canals are intact. IMPRESSION: Right face infraorbital subcutaneous hematoma. No acute facial fracture. A few radiodense foci along the skin surface could indicate small foreign bodies. Approved by: Gerard Pretty M.D. on 10/23/2024 at 14:17 [facility] Narrative Medical decision making narrative: Patient here for ground level fall has bruising skin injury skin tear to the right cheek. Patient is not on any blood thinners. Patient was working outside tripped on a air compressor and landed in the gravel. Only complains of right facial pain. No loss of consciousness. No vision changes. No nausea or vomiting. No headache. Does not want anything for pain. Has small abrasion to the top of the left hand but does not want x-rays of the left hand. Tetanus is up-to-date according to the patient After history and exam, exam is reassuring. No blood work EKG indicated. CT face head and cervical spine will be ordered. Wound care to right face [facility] Medical records reviewed: No recent visit for this complaint Differential considered: Includes but not limited to facial fracture orbital fracture facial contusion intracranial injury Imaging studies independently reviewed: CT head face cervical spine no acute osseous finding. There is soft tissue swelling to the right face. Re-evaluations: 2:30 p.m.. Updated patient results. Patient in no distress. Does not want anything for pain. Return precautions reviewed with patient. Not toxic at discharge. She desires discharge home. Discussion: Appropriate for discharge home. Exam is reassuring. Return precautions reviewed with patient. Nontoxic at discharge. Pain is controlled. Wound care instructions provided. She desires discharge home. Diagnosis: Facial contusion skin abrasion Discharge Plan Departure Patient Disposition: Home Clinical Impression: Contusion of face Qualifiers: Encounter type: initial encounter Qualified Code(s): S00.83XA - Contusion of other part of head, initial encounter Instructions: DI for Contusion, DI for Closed Head Injury Activity Restrictions/Additional Instructions: Your exam and CT scan imaging are reassuring. Please continue ibuprofen or Tylenol for pain. Use provided ice pack 20 minutes at a time as needed for pain and swelling. See family doctor next week for re-evaluation. Bruising may migrate down words to your neck from the injury. This is not uncommon. Return if worse if any questions or concerns. Please clean your skin wound on your face daily with warm soap and water and apply thin layer of topical antibiotic. Prescriptions: No Action zinc gluconate 50 mg tablet 50 mg PO DAILY selenium 100 mcg tablet 100 mcg PO DAILY cyanocobalamin (vitamin B-12) 1,000 mcg capsule 1,000 mcg PO DAILY cholecalciferol (vitamin D3) 50 mcg (2,000 unit) tablet 50 mcg PO DAILY albuterol sulfate 90 mcg/actuation HFA aerosol inhaler 2 puff inhalation Q6H PRN (Reason: shortness of breath or wheezing) Qty: 8.5 0RF levothyroxine 50 mcg tablet 50 mcg PO DAILY Qty: 90 3RF rosuvastatin 10 mg tablet 10 mg PO BEDTIME Qty: 90 3RF triamcinolone acetonide 0.5 % ointment 1 applic topical DAILY Qty: 15 3RF lamotrigine 150 mg tablet 150 mg PO BID Qty: 120 6RF Prolia 60 mg/mL syringe 60 mg SUBCUT [id number] Qty: 1 5RF losartan 100 mg tablet 100 mg PO DAILY Qty: 90 4RF quinidine gluconate 324 mg tablet extended release 324 mg PO BID Qty: 240 3RF Rx Instructions: takes every 12 hours topiramate 100 mg tablet 100 mg PO DAILY Qty: 90 1RF clonazepam 0.5 mg tablet 0.25 mg PO DAILY Qty: 30 0RF bupropion HCl 100 mg tablet 100 mg PO DAILY Qty: 90 0RF Referrals: Daria Petit MD [Primary Care Provider] - Stand Alone Forms: Patient Portal/API/Survey
[2024-10-23] MEDS: BACITRACIN OINT 0.9 GM PCKT 1 APPLIC TOP (13:43)
[2024-10-23 14:00] VITALS: PULSE 61; O2SAT 98
[2024-10-23 14:30] VITALS: PULSE 60; O2SAT 95
[2024-10-23 14:55] VITALS: BP 144/71; PULSE 61; O2SAT 98
== END 2024-10-23 15:02 | disposition home or self-care (01) ==
PROVIDERS: Emergency Provider Emergency Medicine; PCP Student in an Organized Health Care Education/Training Program
DX: S00.83XA Contusion of other part of head, initial encounter (principal); W01.0XXA Fall on same level from slipping, tripping and stumbling without subsequent striking against object, initial encounter
CPT/HCPCS: 70450; 70486; 72125; 99282; 99284

== ENCOUNTER → 2024-11-24 11:32 | Outpatient (CLI) | payer MEDICARE, OTHER, SELFPAY ==
[2024-11-24 13:11] LABS: Appearance Urine UA CLEAR; Bilirubin Urine UA NEGATIVE (NEGATIVE); Color Urine UA YELLOW; Glucose Urine UA NEGATIVE (Negative); Ketones Urine UA NEGATIVE (NEGATIVE); Leukocyte Esterase Urine UA 1+ (NEGATIVE); Nitrite Urine UA NEGATIVE (Negative); Occult Blood Urine UA NEGATIVE (Negative); Protein Urine UA NEGATIVE (Negative); Urobilinogen Urine UA 0.2 E.U./dL (0.2)
[2024-11-24 13:12] LABS: Urine Volume 10mL (spun)
[2024-11-24 13:14] LABS: Bacteria Urine None Seen; Culture Indicated Urine Specimen Cultured; RBC Urine None Seen (0-5/HPF); Squamous Epithelial Cell Urine None Seen (0-5/HPF); WBC Urine 1-5/HPF (0-5/HPF)
== END ==
PROVIDERS: PCP Student in an Organized Health Care Education/Training Program; Referring Provider Physician Assistant; Visit Provider Physician Assistant
DX: M17.12 Unilateral primary osteoarthritis, left knee (principal); Z96.641 Presence of right artificial hip joint
CPT/HCPCS: 81001; 87086

== ENCOUNTER 2024-12-12 16:41 | Emergency (ER) | payer MEDICARE, OTHER, SELFPAY ==
[2024-12-12 16:46] VITALS: BP 139/68; PULSE 73; RESP 18; TEMP 36.9; O2SAT 98; BMI 21.9
--- NOTE | 2024-12-12 18:00 | ED.HEATRA ---
HPI - Head Injury General Chief complaint: Head Injury Stated complaint: Fell hit head bleeding Time Seen by Provider: 12/12/24 16:57 Source: patient and family Mode of arrival: Ambulatory History of Present Illness HPI Narrative: 74-year-old female history of Brugada syndrome on aspirin presents with a mechanical fall tripping over her dog hitting her head against the wall. Patient denies any loss of consciousness dizziness blurred vision neck pain chest pain shortness of breath gait instability bowel or bladder incontinence shortness of breath. Her last tetanus was last year. Other than what is stated 14 point review of system is negative. Related Data Home Medications ?Medication ?Instructions ?Recorded ?Confirmed cholecalciferol (vitamin D3) 50 50 mcg PO DAILY 12/16/23 07/24/24 mcg (2,000 unit) tablet cyanocobalamin (vitamin B-12) 1,000 mcg PO DAILY 12/16/23 07/24/24 1,000 mcg capsule selenium 100 mcg tablet 100 mcg PO DAILY 12/16/23 07/24/24 zinc gluconate 50 mg tablet 50 mg PO DAILY 12/16/23 07/24/24 Previous Rx's ?Medication ?Instructions ?Recorded albuterol sulfate 90 mcg/actuation 2 puff inhalation Q6H PRN 04/06/24 aerosol inhaler shortness of breath or wheezing #8.5 grams levothyroxine 50 mcg tablet 50 mcg PO DAILY #90 tabs 04/06/24 rosuvastatin 10 mg tablet 10 mg PO BEDTIME #90 tabs 04/06/24 triamcinolone acetonide 0.5 % 1 applic topical DAILY #15 grams 04/06/24 topical ointment quinidine gluconate 324 mg 324 mg PO BID #240 tabs 04/16/24 tablet,extended release topiramate 100 mg tablet 100 mg PO DAILY #90 tabs 04/17/24 denosumab 60 mg/mL subcutaneous 60 mg SUBCUT [id number] #1 mL 07/24/24 syringe (Prolia) lamotrigine 150 mg tablet 150 mg PO BID #120 tabs 07/24/24 losartan 100 mg tablet 100 mg PO DAILY #90 tabs 07/24/24 clonazepam 0.5 mg tablet 0.25 mg (1/2 x 0.5 mg) PO DAILY 08/31/24 #30 tabs bupropion HCl 100 mg tablet 100 mg PO DAILY #90 tabs 09/29/24 Allergies Allergy/AdvReac Type Severity Reaction Status Date / Time amiodarone Allergy Severe Chest Pain Verified 12/12/24 16:46 lidocaine Allergy Severe Chest Pain Verified 12/12/24 16:46 Review of Systems Review of Systems ROS Unobtainable: All systems reviewed & are unremarkable except as noted in HPI and below Exam Narrative Exam Narrative: GENERAL: [22] year old patient appears stated age. Well-developed patient, in mild distress. HEAD: Atraumatic. Normocephalic. EYES: Pupils equal round and reactive. Extraocular motions intact. No scleral icterus. No injection or drainage. ENT: Nose without bleeding, purulent drainage. Throat without erythema, tonsillar hypertrophy or exudate. Airway patent. NECK: Trachea midline. Non tender CARDIOVASCULAR: Regular rate and rhythm without murmurs, gallops, or rubs. RESPIRATORY: Clear to auscultation. Breath sounds equal bilaterally. No wheezes, rales, or rhonchi. GASTROINTESTINAL: Abdomen soft, non-tender, nondistended. EXTREMITIES: No edema or joint tenderness. BACK: Nontender without deformity or crepitance. No flank tenderness. NEURO: AOx3. SKIN: No rash or erythema of visible areas. R forehead jagged irregular laceration above right eyebrow. 2x2cm Initial Vital Signs Initial Vital Signs: Vital Signs Temperature 98.4 F 12/12/24 16:46 Pulse Rate 73 12/12/24 16:46 Respiratory Rate 18 12/12/24 16:46 Blood Pressure 139/68 12/12/24 16:46 Pulse Oximetry 98 12/12/24 16:46 Oxygen Delivery Method Room Air 12/12/24 16:46 Procedures Laceration Repair Laceration 1: Time of procedure: 18:02 Size (cm): 1.5 Description: irregular Depth: simple, single layer Local Anesthetic: lidocaine 1% and with epi Amount of anesthesia used (mL): 1.5 Skin layer closed with: nylon Skin layer suture size: 5-0 Number of sutures: 5 Course Vital Signs Vital signs: Vital Signs - 8 hr 12/12/24 16:46 Temperature 98.4 F Pulse Rate 73 Respiratory Rate 18 Blood Pressure 139/68 Pulse Oximetry 98 Oxygen Delivery Method Room Air MDM - Head Injury MDM Narrative Medical decision making narrative: All labwork, vital signs, nurse triage note, medication list and previous ER visits all reviewed. 5 stitches single interrupted using 5.0 nylon x 1 pack used. Bacitracin ointment applied. Her partner is a retired sewer inspector will take out sutures in 1 week. Differential diagnosis includes cellulitis, foreign body, laceration, subarachnoid and subdural hemorrhage. Patient refused head CT scan despite educating on and disability as complications of leaving CT scan workup unattended but patient and her partner in the room acknowledged and were competent in making the decision to refuse CT scan. Discharge Plan Departure Patient Disposition: Home Clinical Impression: Fall Qualifiers: Encounter type: initial encounter Qualified Code(s): W19.XXXA - Unspecified fall, initial encounter Forehead laceration Qualifiers: Encounter type: initial encounter Qualified Code(s): S01.81XA - Laceration without foreign body of other part of head, initial encounter Instructions: DI for Laceration Repair Activity Restrictions/Additional Instructions: Return with new or worsening symptoms. Follow up in 1 week for suture removal with furniture technician. Prescriptions: No Action zinc gluconate 50 mg tablet 50 mg PO DAILY selenium 100 mcg tablet 100 mcg PO DAILY cyanocobalamin (vitamin B-12) 1,000 mcg capsule 1,000 mcg PO DAILY cholecalciferol (vitamin D3) 50 mcg (2,000 unit) tablet 50 mcg PO DAILY albuterol sulfate 90 mcg/actuation HFA aerosol inhaler 2 puff inhalation Q6H PRN (Reason: shortness of breath or wheezing) Qty: 8.5 0RF levothyroxine 50 mcg tablet 50 mcg PO DAILY Qty: 90 3RF rosuvastatin 10 mg tablet 10 mg PO BEDTIME Qty: 90 3RF triamcinolone acetonide 0.5 % ointment 1 applic topical DAILY Qty: 15 3RF lamotrigine 150 mg tablet 150 mg PO BID Qty: 120 6RF Prolia 60 mg/mL syringe 60 mg SUBCUT [id number] Qty: 1 5RF losartan 100 mg tablet 100 mg PO DAILY Qty: 90 4RF quinidine gluconate 324 mg tablet extended release 324 mg PO BID Qty: 240 3RF Rx Instructions: takes every 12 hours topiramate 100 mg tablet 100 mg PO DAILY Qty: 90 1RF clonazepam 0.5 mg tablet 0.25 mg PO DAILY Qty: 30 0RF bupropion HCl 100 mg tablet 100 mg PO DAILY Qty: 90 0RF Referrals: Daria Petit MD [Primary Care Provider, Family Practice] Stand Alone Forms: Patient Portal/API
== END 2024-12-12 18:32 | disposition home or self-care (01) ==
PROVIDERS: Emergency Provider Family Medicine; PCP Student in an Organized Health Care Education/Training Program
DX: S01.81XA Laceration without foreign body of other part of head, initial encounter (principal); W01.198A Fall on same level from slipping, tripping and stumbling with subsequent striking against other object, initial encounter
CPT/HCPCS: 12011; 99281; 99283

== ENCOUNTER → 2025-03-16 15:36 | Outpatient (CLI) | payer MEDICARE, OTHER, SELFPAY ==
--- NOTE | 2025-03-16 15:38 | DI.CT.S_ITS ---
PROCEDURE: CT HEAD/BRAIN WO CON INDICATIONS: SAH TECHNIQUE: Noncontrast 4.5 mm thick angled axial sections acquired from the foramen magnum to the vertex, with coronal and sagittal reformats. For radiation dose reduction, the following was used: automated exposure control, adjustment of mA and/or kV according to patient size. COMPARISON: [facility], CT, CT HEAD/BRAIN WO CON, 02/11/2025, 19:13. FINDINGS: Image quality: Diagnostic. CSF spaces: Basal cisterns are patent. No extra-axial fluid collections. The ventricles are symmetric in size and shape. Brain: The previously seen right-sided subarachnoid and subdural hemorrhage has resolved. No intracranial mass effect. There is cerebral volume loss, with resultant ventricular and sulcal prominence. There are periventricular and deep white matter chronic small vessel ischemic changes. There is intracranial internal carotid artery atherosclerosis. Skull and face: Calvarium and visualized facial bones appear intact, without suspicious lesions. Sinuses: Visualized sinuses and mastoids are clear. IMPRESSION: Interval resolution of the previously seen subarachnoid and subdural hemorrhage. Dictated by: Roger Lovell M.D. on 03/16/2025 at 16:44 Approved by: Roger Lovell M.D. on 03/16/2025 at 16:46
== END ==
PROVIDERS: PCP Student in an Organized Health Care Education/Training Program; Referring Provider Nurse Practitioner; Visit Provider Nurse Practitioner
DX: I60.9 Nontraumatic subarachnoid hemorrhage, unspecified (principal); I65.29 Occlusion and stenosis of unspecified carotid artery
CPT/HCPCS: 70450

== ENCOUNTER → 2025-04-09 14:50 | Outpatient (CLI) | payer MEDICARE, OTHER, SELFPAY ==
--- NOTE | 2025-04-09 14:53 | DI.RAD.S_ITS ---
PROCEDURE: XR DEXA AXIAL SKELETON INDICATIONS: Bone Density Screening COMPARISON: [facility], [place], XR DEXA AXIAL SKELETON, 03/14/2023, 12:51. FINDINGS: Lumbar Spine: Bone mineral density 0.833 (previously 0.842) g/cm2, T score -1.3 (previously -1.6). Left Femoral Neck: Bone mineral density 0.594 (previously 0.622) g/cm2, T score -2.3 (previously -2.0). Left Hip: Bone mineral density 0.708 (previously 0.731) g/cm2, T score -1.9 (previously -1.7). Fracture Risk Calculation (when applicable): 10-year fracture risk of a major osteoporotic fracture 21 percent and of a hip fracture 6.0 percent. (T score greater or equal to -1.0 to: NORMAL) (T score from -1.1 to -2.4: OSTEOPENIA) (T score less than or equal to -2.5: OSTEOPOROSIS) IMPRESSION: Osteopenia--- recommend repeat DEXA in 2- 3 years for reassessment. Follow-up guidelines as follows: Osteoporosis: Consider a repeat DEXA and Vertebral Fracture Assessment (VFA) exam in 2 years or sooner if medically necessary, to reassess this patient's status. Osteopenia: Consider a repeat DEXA in 2-3 years to reassess this patient's status, or if there is a new clinical indication. Normal: Consider a repeat DEXA in 5 years or sooner, or if there is a new clinical indication. All treatment decisions require clinical judgment and consideration of individual patient factors, including patient preferences, comorbidities, previous drug use, risk factors not captured in the FRAX model (e.g., frailty, falls, vitamin D deficiency, increased bone turnover, interval significant decline in bone density ) and possible under- or over-estimation of fracture risk by FRAX. In addition, the NOF Guide recommends that FDA-approved medical therapies be considered in postmenopausal women and men age >= 50 years with a: * Hip or vertebral (clinical or morphometric) fracture * T-score of <=-2.5 at the spine or hip * Ten-year fracture probability by FRAX of >= 3% for hip fracture or >=20% for major osteoporotic fracture. Dictated by: Manish Robison M.D. on 04/12/2025 at 18:14 Approved by: Manish Robison M.D. on 04/12/2025 at 18:17
== END ==
LOC: RAD 14:52
PROVIDERS: PCP Student in an Organized Health Care Education/Training Program; Referring Provider Student in an Organized Health Care Education/Training Program; Visit Provider Student in an Organized Health Care Education/Training Program
DX: M81.0 Age-related osteoporosis without current pathological fracture (principal); M85.89 Other specified disorders of bone density and structure, multiple sites
CPT/HCPCS: 77080

== ENCOUNTER → 2025-04-15 14:22 | Outpatient (CLI) | payer MEDICARE, OTHER, SELFPAY ==
--- NOTE | 2025-04-15 14:23 | DI.RAD.S_ITS ---
PROCEDURE: XR CLAVICLE RT INDICATIONS: Right shoulder pain TECHNIQUE: 2 views of the clavicle were acquired. COMPARISON: [facility], CT, CT CHEST ABD PEL W CON, 02/11/2025, 19:13. [facility], CR, XR SHOULDER RT 2+ VIEWS, 04/15/2025, 14:18. FINDINGS: Bones: No fractures or dislocations. No suspicious bony lesions. Focal acromioclavicular joint degenerative change is seen. Right shoulder arthroplasty hardware is seen. Sternotomy wires are seen. Soft tissues: No suspicious soft tissue calcifications. AICD leads are seen. IMPRESSION: No acute clavicle abnormality is seen. Focal acromioclavicular joint degenerative change is seen. Right shoulder arthroplasty hardware present. Dictated by: Roger Lovell M.D. on 04/15/2025 at 13:57 Approved by: Roger Lovell M.D. on 04/15/2025 at 13:58
--- NOTE | 2025-04-15 14:23 | DI.RAD.S_ITS ---
PROCEDURE: XR SHOULDER RT MIN 2V INDICATIONS: Right shoulder pain TECHNIQUE: 3 views of the shoulder were acquired. COMPARISON: [facility], CT, CT CHEST ABD PEL W CON, 02/11/2025, 19:13. [facility], CR, XR CLAVICLE RT, 04/15/2025, 14:18. FINDINGS: Bones: There is intact appearing right shoulder arthroplasty hardware. No fractures or dislocations. No suspicious bony lesions. Visualized ribs appear intact. Underlying degenerative changes are seen. Sternotomy wires are seen. Soft tissues: No suspicious soft tissue calcifications. AICD leads are partially seen. IMPRESSION: Unremarkable right shoulder arthroplasty hardware. Dictated by: Roger Lovell M.D. on 04/15/2025 at 13:56 Approved by: Roger Lovell M.D. on 04/15/2025 at 13:57
== END ==
LOC: RAD 14:23
PROVIDERS: PCP Student in an Organized Health Care Education/Training Program; Referring Provider Family Medicine; Visit Provider Family Medicine
DX: M25.519 Pain in unspecified shoulder (principal); Z96.611 Presence of right artificial shoulder joint
CPT/HCPCS: 73000; 73030

== ENCOUNTER → 2025-05-19 08:44 | Outpatient (CLI) | payer MEDICARE, OTHER, SELFPAY ==
--- NOTE | 2025-05-19 | DI.RAD.S_ITS ---
PROCEDURE: XR SHOULDER RT MIN 2V INDICATIONS: REDUCTION OF RIGHT SHOULDER TECHNIQUE: 3 views of the shoulder were acquired. COMPARISON: [facility], [place], XR SHOULDER RT 2+ VIEWS, 05/19/2025, 8:45. [facility], [place], XR SHOULDER RT 2+ VIEWS, 04/15/2025, 14:18. 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 Similar alignment of the inferiorly displaced distal acromion fracture. No significant progression of bony callus formation about the fracture plane. Redemonstrated right posterior lateral 3rd rib fracture. Soft tissues: No suspicious soft tissue calcifications. Partially visualized AICD device. 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 Subacute distal acromion inferiorly displaced fracture, which may represent a traumatic fracture versus possible stress related fracture. Correlate with any history of recent right shoulder trauma. Similar alignment of the minimally displaced right posterolateral 3rd rib fracture. Dictated by: Heath Page M.D. on 05/20/2025 at 8:15 Approved by: Heath Page M.D. on 05/20/2025 at 8:18
--- NOTE | 2025-05-19 08:47 | DI.RAD.S_ITS ---
PROCEDURE: XR SHOULDER RT MIN 2V INDICATIONS: Ground level fall on right shoulder, previous replacement TECHNIQUE: To views of the shoulder were acquired. COMPARISON: [facility], [place], XR SHOULDER RT 2+ VIEWS, 04/15/2025, 14:18. FINDINGS: Bones: Anterior inferior dislocation of right shoulder arthroplasty. No suspicious bony lesions. Visualized ribs appear intact. Soft tissues: No suspicious soft tissue calcifications. IMPRESSION: Dislocated right shoulder arthroplasty. Dictated by: Eduardo Black M.D. on 05/19/2025 at 9:33 Approved by: Eduardo Black M.D. on 05/19/2025 at 9:34
== END ==
PROVIDERS: PCP Student in an Organized Health Care Education/Training Program; Referring Provider Nurse Practitioner Family; Visit Provider Nurse Practitioner Family
DX: S42.121A Displaced fracture of acromial process, right shoulder, initial encounter for closed fracture (principal); S22.31XA Fracture of one rib, right side, initial encounter for closed fracture; T84.028A Dislocation of other internal joint prosthesis, initial encounter; W18.30XA Fall on same level, unspecified, initial encounter
CPT/HCPCS: 73030

== ENCOUNTER 2025-05-19 08:58 | Emergency (ER) | payer MEDICARE, SELFPAY ==
[2025-05-19] VITALS (14 sets, daily range): BP systolic 112–187; BP diastolic 55–81; PULSE 55–77; RESP 11–21; TEMP 36.9; O2SAT 95–100; BMI 22.3; BMI 23.2
--- NOTE | 2025-05-19 09:57 | EKG_ITS ---
[address] [address] Test Date: 2025-05-19 Pat Name: Daria Benedict Department: Room: Gender: Female Alternative Medicine Practitioner: [facility] : 1950 Requested By: Order Number: [id number] Reading MD: Pablito Mark MD Measurements Intervals [place] Rate: 57 P: 13 MD: 172 QRS: -8 QRSD: 94 T: 34 QT: 474 QTc: 461 Interpretive Statements Sinus bradycardia Electronically Signed On 05-20-2025 7:36:37 PST by Pablito Mark MD
[2025-05-19 10:27] LABS: Add Manual Diff / Slide Review NO; Hematocrit 36.2 % (36-46); Hemoglobin 12.2 g/dL (12.0-16.0); Lymphocytes Absolute Auto 900 /uL (1100-4500); Mean Corpuscular HGB Conc 33.7 % (30-36); Mean Corpuscular Hemoglobin 29.8 PG (26-34); Mean Corpuscular Volume 88.5 fL (80-100); Platelet Count 220 X10^3/uL (150-400)
[2025-05-19 10:42] LABS: Alanine Aminotransferase 20 IU/L (<35); Albumin 4.6 g/dL (3.5-5.0); Albumin Globulin Ratio 1.8 (1.0-2.8); Alkaline Phosphatase 70 U/L (38-126); Blood Urea Nitrogen 21 mg/dL (7-17); Calcium 9.8 mg/dL (8.4-10.2); Carbon Dioxide 26 mmol/L (22-32); Chloride 103 mmol/L (98-107); Estimated Glomerular Filt Rate 59 mL/min (>60); Globulin 2.5 g/dL (1.7-4.1); Glucose 94 mg/dL (70-99); HEMOLYSIS 20 (0-50); Lipase 55 U/L (23-300); Magnesium 2.4 mg/dL (1.6-2.3); Potassium 4.6 mmol/L (3.4-5.1); Sodium 139 mmol/L (137-145); Total Protein 7.1 g/dL (6.3-8.2)
[2025-05-19 10:53] LABS: NT-proBNP (BNP-Adult 18+) 271 pg/mL (<450); Troponin I < 0.012 ng/mL (0.01-0.034)
[2025-05-19] MEDS: KETAMINE 500 MG/5 ML INJ 50 MG IV (10:54)
--- NOTE | 2025-05-19 11:09 | PM.CN.IH.1 ---
History of Present Illness Consult details Date Patient Seen: 05/19/25 Time Patient Seen: 11:09 Chief complaint: Right shoulder pain Reason for consult: Right shoulder prosthetic dislocation Requesting provider: Josiah Kim Narrative: 74-year-old female presented to the emergency room today after a fall from ground level with pain in the right shoulder. She has a history of a prior right reverse total shoulder arthroplasty done in [place] in 2019. She reports no substantial issues with the right shoulder since the time of her surgery. X-rays in the emergency room revealed a dislocation of the prosthesis with no obvious evidence of fracture. Ortho consult was requested. She reports discomfort in the right shoulder only. Meds Home Medications and Allergies Home Medications ?Medication ?Instructions ?Recorded ?Confirmed ?Type cholecalciferol (vitamin D3) 50 50 mcg PO DAILY 12/16/23 05/19/25 History mcg (2,000 unit) tablet cyanocobalamin (vitamin B-12) 1,000 mcg PO DAILY 12/16/23 05/19/25 History 1,000 mcg capsule selenium 100 mcg tablet 100 mcg PO DAILY 12/16/23 05/19/25 History zinc gluconate 50 mg tablet 50 mg PO DAILY 12/16/23 05/19/25 History albuterol sulfate 90 mcg/actuation 2 puff inhalation Q6H PRN 04/06/24 05/19/25 Rx aerosol inhaler shortness of breath or wheezing #8.5 grams levothyroxine 50 mcg tablet 50 mcg PO DAILY #90 tabs 04/06/24 05/19/25 Rx rosuvastatin 10 mg tablet 10 mg PO BEDTIME #90 tabs 04/06/24 05/19/25 Rx triamcinolone acetonide 0.5 % 1 applic topical DAILY #15 grams 04/06/24 05/19/25 Rx topical ointment quinidine gluconate 324 mg 324 mg PO BID #240 tabs 04/16/24 05/19/25 Rx tablet,extended release topiramate 100 mg tablet 100 mg PO DAILY #90 tabs 04/17/24 05/19/25 Rx lamotrigine 150 mg tablet 150 mg PO BID #120 tabs 07/24/24 05/19/25 Rx losartan 100 mg tablet 100 mg PO DAILY #90 tabs 07/24/24 05/19/25 Rx clonazepam 0.5 mg tablet 0.25 mg (1/2 x 0.5 mg) PO DAILY 08/31/24 05/19/25 Rx #30 tabs bupropion HCl 100 mg tablet,12 hr 100 mg PO DAILY #90 tabs 01/04/25 05/19/25 Rx sustained-release denosumab 60 mg/mL subcutaneous 60 mg SUBCUT [id number] #1 mL 03/26/25 05/19/25 Rx syringe (Prolia) Allergies Allergy/AdvReac Type Severity Reaction Status Date / Time amiodarone Allergy Severe Chest Pain Verified 05/19/25 09:11 lidocaine Allergy Severe Chest Pain Verified 05/19/25 09:11 Exam Vital Signs (past 8 hours): - 05/19/25 09:12 Temperature 98.5 F Pulse Rate 67 Respiratory Rate 18 Blood Pressure 167/72 H Pulse Oximetry 97 Oxygen Delivery Method Room Air Oxygen Delivery Method Room Air Narrative Exam Narrative: Right upper extremity shows a well-healed surgical incision consistent with history of right shoulder arthroplasty. She has limited range of motion due to pain. Distal radial, ulnar, median, axillary, and musculocutaneous nerve motor and sensory exams are intact. Objective Imaging Shoulder x-ray: My impression: Two views of the right shoulder performed May 19, 2025 were personally assessed. There is a well-positioned reverse total shoulder arthroplasty of the right shoulder with anterior dislocation of the humeral component from the glenosphere. There are no obvious fractures. There is no evidence of prosthetic loosening. Two views of the right shoulder performed May 19, 2025 following reduction show concentric reduction of the humeral component to the glenosphere and no evidence of any fractures. Labs 05/19/25 10:10 05/19/25 10:10 Labs: Laboratory Results - last 24 hr 05/19/25 10:10 WBC 7.4 RBC 4.09 Hgb 12.2 Hct 36.2 MCV 88.5 MCH 29.8 MCHC 33.7 RDW 14.6 Plt Count 220 Neut % (Auto) 76.0 H Lymph % (Auto) 11.6 L [place] % (Auto) 10.0 Eos % (Auto) 1.5 L Baso % (Auto) 0.9 Neut # (Auto) 5700 Lymph # (Auto) 900 L [place] # (Auto) 700 Eos # (Auto) 100 Baso # (Auto) 100 Sodium 139 Potassium 4.6 Chloride 103 Carbon Dioxide 26 BUN 21 H Creatinine 0.99 Estimated GFR 59 L BUN/Creatinine Ratio 21.2 Glucose 94 Calcium 9.8 Magnesium 2.4 H Total Bilirubin 0.5 AST 35 ALT 20 Alkaline Phosphatase 70 Troponin I < 0.012 NT-Pro-B Natriuret Pep 271 Total Protein 7.1 Albumin 4.6 Globulin 2.5 Albumin/Globulin Ratio 1.8 Lipase 55 Assessment & Plan Assessment & Plan narrative: Right shoulder prosthesis dislocation. Recommendation is for sedation and reduction of the right shoulder. Risks of procedure were discussed with the patient including, but not limited to: Failure of reduction, prosthetic loosening, periprosthetic fracture, neurovascular injury, and . Patient voiced understanding and acceptance of the risks. After sedation was provided by the emergency room staff, the right shoulder was reduced in standard fashion using axillary counter traction through a sheet. Immediate x-rays following reduction showed concentric reduction of the prosthesis On both an AP and scapular Y-view. Recommend sling for comfort and begin some Codman exercises tomorrow morning. Recommend follow up in the orthopedic clinic within a week. Time-Based Coding :: [TOTAL MINUTES] spent with patient and on the chart (including review of chart, obtaining history, exam, reviewing outside data, placing orders, documenting exam and treatment plan, and counseling patient) on [DATE]. PROFEE Charge Codes Inpatient or Observation consultation: 22740
--- NOTE | 2025-05-19 11:18 | PC.NURSE ---
pt has obvious deformity to right arm after falling in the evening pt arrives in sling cms intact
--- NOTE | 2025-05-19 11:27 | ED.TRAUMA ---
HPI - Trauma General Chief Complaint: Extremity Injury, Upper Stated Complaint: Right shoulder pain Time Seen by Provider: 05/19/25 09:34 Source: patient Mode of arrival: Ambulatory History of Present Illness HPI narrative: 74-year-old female with history of Brugada syndrome, AICD in place, shoulder replacement in [place] many years ago presenting after accidental trip and fall. Denies any nausea, vomiting, presyncope, any other concerns symptoms. Patient denies any head strike or any pain anywhere else. Denies fevers, chills, nausea, vomiting, diarrhea, abdominal pain, chest pain, shortness of breath, dizziness, headache, and urinary symptoms. Related Data Home Medications ?Medication ?Instructions ?Recorded ?Confirmed cholecalciferol (vitamin D3) 50 50 mcg PO DAILY 12/16/23 05/19/25 mcg (2,000 unit) tablet cyanocobalamin (vitamin B-12) 1,000 mcg PO DAILY 12/16/23 05/19/25 1,000 mcg capsule selenium 100 mcg tablet 100 mcg PO DAILY 12/16/23 05/19/25 zinc gluconate 50 mg tablet 50 mg PO DAILY 12/16/23 05/19/25 Previous Rx's ?Medication ?Instructions ?Recorded albuterol sulfate 90 mcg/actuation 2 puff inhalation Q6H PRN 04/06/24 aerosol inhaler shortness of breath or wheezing #8.5 grams levothyroxine 50 mcg tablet 50 mcg PO DAILY #90 tabs 04/06/24 rosuvastatin 10 mg tablet 10 mg PO BEDTIME #90 tabs 04/06/24 triamcinolone acetonide 0.5 % 1 applic topical DAILY #15 grams 04/06/24 topical ointment quinidine gluconate 324 mg 324 mg PO BID #240 tabs 04/16/24 tablet,extended release topiramate 100 mg tablet 100 mg PO DAILY #90 tabs 04/17/24 lamotrigine 150 mg tablet 150 mg PO BID #120 tabs 07/24/24 losartan 100 mg tablet 100 mg PO DAILY #90 tabs 07/24/24 clonazepam 0.5 mg tablet 0.25 mg (1/2 x 0.5 mg) PO DAILY 08/31/24 #30 tabs bupropion HCl 100 mg tablet,12 hr 100 mg PO DAILY #90 tabs 01/04/25 sustained-release denosumab 60 mg/mL subcutaneous 60 mg SUBCUT [id number] #1 mL 03/26/25 syringe (Motista) Allergies Allergy/AdvReac Type Severity Reaction Status Date / Time amiodarone Allergy Severe Chest Pain Verified 05/19/25 09:11 lidocaine Allergy Severe Chest Pain Verified 05/19/25 09:11 Review of Systems Review of Systems ROS Unobtainable: All systems reviewed & are unremarkable except as noted in HPI and below Exam Initial Vital Signs Initial Vital Signs: Vital Signs Temperature 98.5 F 05/19/25 09:12 Pulse Rate 67 05/19/25 09:12 Respiratory Rate 18 05/19/25 09:12 Blood Pressure 167/72 H 05/19/25 09:12 Pulse Oximetry 97 05/19/25 09:12 Oxygen Delivery Method Room Air 05/19/25 09:12 Const General: cooperative, healthy appearing, comfortable, well developed and well hydrated Nutritional Appearance: average body habitus [facility] Head: normal to inspection Ears: external ears normal Nose: external nose normal and nares normal Face and sinus: sinuses nontender, face symmetric, ecchymosis not on the right, not on the left and not bilaterally, erythema not on the right, not on the left and not bilaterally and edema not on the right, not on the left and not bilaterally Mouth: lip normal Eyes General: Yes appearance normal, both eyes and all related structures Eyelids: eyelids normal Sclera: sclerae normal Pupils: PERRL Neck Neck: normal visual inspection Resp Effort & Inspection: normal respiratory effort and able to speak in complete sentences Cardio Rate: regular rate Rhythm: regular rhythm Pulses: radial pulses present GI Inspection: normal to inspection and non-distended General: bimanual renal exam normal bilaterally Back/Spine/Pelvis Back: normal to inspection Skin General: no rashes or lesions noted Neuro General: patient alert, patient awake, patient oriented x3, gait normal, moves all extremities, normal light touch, pain and propioception, no focal motor deficits and CN's II-XI intact bilaterally Cognition: normal cognition Speech: speech normal Gait: normal gait Motor: muscle tone normal throughout Sensory Exam: no sensory deficits noted Extrem General: No normal to inspection and other (Patient with gross deformity of the right shoulder with c/w ant dislocation) Psych Appearance: grossly normal Mental Status: mental status grossly normal Speech and Movement: speech and movement normal Mood: congruent mood Attitude: cooperative Thought Process: normal Thought Content: normal Judgment: judgment good Procedures Procedural Sedation Additional Comments: Procedural Sedation Note: see ROS and EXAM above ASA Classification [1] ( ASA Classifications: 1-normal, 2-mild systemic disease, 3-severe systemic disease, 4- severe systemic disease that is constant threat to life, 5-moribund patient not expected to live without procedure) Time Out Completed[yes] Procedure performed by me for [reduction] Procedure and alternatives explained, all questions answered and consent signed by [Pt via proxy ()] Time of sedation [see nurse's notes] Medications administered by RN [see nurse's notes] Medications administered by Provider [see nurse's notes] Level of sedation [see nurse's notes] Complications [none] Post procedure evaluation [patient was successful reduction of shoulder, somnolent.] Course Orders Ordered: ED Orders 05/19/25 09:57 EKG-12 Lead Stat 05/19/25 10:00 EKG-12 Lead Stat 05/19/25 10:10 Complete Blood Count AUTO DIFF Stat Comprehensive Metabolic Panel Stat Lipase Stat Magnesium Stat NT-proBNP (BNP-Adult 18+) Stat Troponin I Stat Discontinued Medications Ketamine HCl (Ketamine 500 Mg/5 Ml Inj) 50 mg IV NOW ONE Stop: 05/19/25 10:26 Midazolam HCl (Midazolam 5 Mg/Ml Vial) 4 mg IV NOW ONE Stop: 05/19/25 10:26 Consultations Consultation #1: Spoke with Dr. Woods regarding appropriateness of sedative meds for patient with Brugada syndrome (sodium channel-opathy) Vital Signs Vital signs: Vital Signs - 8 hr 05/19/25 09:12 05/19/25 10:35 Temperature 98.5 F Pulse Rate 67 59 L Respiratory Rate 18 14 Blood Pressure 167/72 H Pulse Oximetry 97 Oxygen Delivery Method Room Air MDM - Trauma Lab Data 05/19/25 10:10 05/19/25 10:10 Labs: Lab Results 05/19/25 Range/Units 10:10 WBC 7.4 (4.5-11.0) X10^3/uL RBC 4.09 (4.0-5.2) X10^6/uL Hgb 12.2 (12.0-16.0) g/dL Hct 36.2 (36-46) % MCV 88.5 (80-100) fL MCH 29.8 (26-34) PG MCHC 33.7 (30-36) % RDW 14.6 (11.6-14.8) % Plt Count 220 (150-400) X10^3/uL Neut % (Auto) 76.0 H (50-75) % Lymph % (Auto) 11.6 L (25-40) % [place] % (Auto) 10.0 (3-14) % Eos % (Auto) 1.5 L (2-4) % Baso % (Auto) 0.9 (0-2) % Neut # (Auto) 5700 (9107-5606) /uL Lymph # (Auto) 900 L (6606-2480) /uL [place] # (Auto) 700 (0-900) /uL Eos # (Auto) 100 (0-450) /uL Baso # (Auto) 100 (0-100) /uL Sodium 139 (137-145) mmol/L Potassium 4.6 (3.4-5.1) mmol/L Chloride 103 (98-107) mmol/L Carbon Dioxide 26 (22-32) mmol/L BUN 21 H (7-17) mg/dL Creatinine 0.99 (0.52-1.04) mg/dL Estimated GFR 59 L (>60) mL/min BUN/Creatinine Ratio 21.2 (6-22) Glucose 94 (70-99) mg/dL Calcium 9.8 (8.4-10.2) mg/dL Magnesium 2.4 H (1.6-2.3) mg/dL Total Bilirubin 0.5 (0.2-1.3) mg/dL AST 35 (14-36) IU/L ALT 20 (<35) IU/L Alkaline Phosphatase 70 (38-126) U/L Troponin I < 0.012 (0.01-0.034) ng/mL NT-Pro-B Natriuret Pep 271 (<450) pg/mL Total Protein 7.1 (6.3-8.2) g/dL Albumin 4.6 (3.5-5.0) g/dL Globulin 2.5 (1.7-4.1) g/dL Albumin/Globulin Ratio 1.8 (1.0-2.8) Lipase 55 (23-300) U/L MDM Narrative Medical decision making narrative: Pt presents with blunt trauma. CXR considered given possibility of PTX/pulmonary contusion/rib fx, however, deferred due to reassuring history and physical exam. CT brain considered to r/o intracranial hemorrhage/injury/skull fracture, however, deferred due to reassuring history and physical exam. CT C-spine considered to r/o C-spine fx/dislocation/injury, however, deferred due to reassuring history and physical exam. CT ab/pelvis/chest considered to r/o intra-abdominal/intrathoracic injury including pulmonary contusion/PTX/renal injury/colon injury/liver injury/spleen injury, etc. however, deferred due to reassuring history and physical exam. Labs considered to r/o severe anemia, electrolyte abnormality (including hypokalemia, hyperkalemia, hypernatremia, hyponatremia, hyperglycemia, hypoglycemia, etc), thrombocytopenia. However, deferred due to reassuring history and physical exam Patient with isolated dislocated his shoulder on the right side. Patient with a prosthetic. Orthopedics and cardiology consulted given difficulty of reduction. Please see orthopedics note for reduction procedure. Critical Care Time Critical Care Time Attestation: Critical Care Time [35] minutes: Critical care time is separate from other billable procedures. This critical care time includes consultation with family and other consulting doctors, review of records, and interpretation of data from labs, EKGs, imaging, etc. Discharge Plan Departure Patient Disposition: Home Clinical Impression: Dislocation of prosthetic joint of shoulder Instructions: DI for Shoulder Dislocation Activity Restrictions/Additional Instructions: Please return if you have difficulty moving the affected joint, worsening pain after tomorrow, a sudden loss of sensation, or if the affected area becomes cold. Please continuous pickling line pickler helper Arnica gel OTC for topical joint pain relief. Please take all prescribed medications and follow up with your PMD as soon as possible. Please wear your sling over the next day. Do not keep it on for more than 3 days as you risk frozen shoulder. Avoid fast or sudden movements as this may re-dislocate the affected shoulder. Please return if it becomes dislocated again or you lose strength/sensation in the affected extremity. Prescriptions: No Action Prolia 60 mg/mL syringe 60 mg SUBCUT [id number] Qty: 1 5RF zinc gluconate 50 mg tablet 50 mg PO DAILY selenium 100 mcg tablet 100 mcg PO DAILY cyanocobalamin (vitamin B-12) 1,000 mcg capsule 1,000 mcg PO DAILY cholecalciferol (vitamin D3) 50 mcg (2,000 unit) tablet 50 mcg PO DAILY albuterol sulfate 90 mcg/actuation HFA aerosol inhaler 2 puff inhalation Q6H PRN (Reason: shortness of breath or wheezing) Qty: 8.5 0RF levothyroxine 50 mcg tablet 50 mcg PO DAILY Qty: 90 3RF rosuvastatin 10 mg tablet 10 mg PO BEDTIME Qty: 90 3RF triamcinolone acetonide 0.5 % ointment 1 applic topical DAILY Qty: 15 3RF lamotrigine 150 mg tablet 150 mg PO BID Qty: 120 6RF losartan 100 mg tablet 100 mg PO DAILY Qty: 90 4RF quinidine gluconate 324 mg tablet extended release 324 mg PO BID Qty: 240 3RF Rx Instructions: takes every 12 hours topiramate 100 mg tablet 100 mg PO DAILY Qty: 90 1RF clonazepam 0.5 mg tablet 0.25 mg PO DAILY Qty: 30 0RF bupropion HCl 100 mg tablet sustained-release 12 hr 100 mg PO DAILY Qty: 90 3RF Referrals: Daria Petit MD [Primary Care Provider, Family Practice] Stand Alone Forms: Patient Portal/API
--- NOTE | 2025-05-19 11:31 | PC.NURSE ---
1051- timeout 1054- 25mg ketamine given by provider 1055 - 1mg versed given by provider 1055 - providers attempt reduction - pt resisting and having increased pain 1056 - 1mg versed given by provider 1057 - attempt for reduction by providers 1059 - 2L nc placed by rt per provider order spo2 wnl >95%, 25mg ketamine and 1mg versed given by provider 1100- continued attempt for reduction by providers 1103 - 1mg versed given, xray arrives and imaging performed 1107 - drs and rt leave, rn remains with pt as pt sleeping not arousable to voice or touch
[2025-05-19] MEDS: MIDAZOLAM 5 MG/ML VIAL 4 MG IV (11:43)
--- NOTE | 2025-05-19 11:58 | PC.NURSE ---
patient very sleepy hard to awaken - provider aware and states rn does not need to remain at bedside for patient to wake up - provider order for q15 neuro checks to assess pt arousability
== END 2025-05-19 13:09 | disposition home or self-care (01) ==
PROVIDERS: Emergency Provider Emergency Medicine; PCP Student in an Organized Health Care Education/Training Program
DX: T84.028A Dislocation of other internal joint prosthesis, initial encounter (principal); S42.121A Displaced fracture of acromial process, right shoulder, initial encounter for closed fracture; S22.31XA Fracture of one rib, right side, initial encounter for closed fracture; W01.0XXA Fall on same level from slipping, tripping and stumbling without subsequent striking against object, initial encounter
CPT/HCPCS: 23650; 36415; 73030; 80053; 83690; 83735; 83880; 84484; 85025; 93005; 93010; 99152; 99285; 99291; J2250